=== PATIENT | female | born 1950 | race Caucasian/White ===

== ENCOUNTER 2023-06-07 05:09 | Inpatient (IN) | payer MEDICARE, OTHER, SELFPAY ==
[2023-05-19 11:46] VITALS: BMI 24.0
[2023-05-19 12:45] LABS: % Basophils 0.2 % (0-2); % Immature Granulocytes 0.4 % (0-0.5); % Lymphocytes 26.3 % (20.5-51.1); % Monocytes 11.5 % (1.7-9.3); % Neutrophils 61.6 % (42.2-75.2); Absolute Lymphocytes 1.3 10^3/uL (1.2-3.4); Absolute Monocytes 0.6 10^3/uL (0.1-0.6); Absolute Neutrophils 3.1 10^3/uL (1.4-6.5); Hematocrit 30.9 % (37.0-47.0); Mean Corp Hgb Conc. 32.4 g/dL (33.0-37.0); Mean Corpuscular Hgb 29.5 pg (27.0-31.0); Mean Corpuscular Volume 91.2 fL (81.0-99.0); Mean Platelet Volume 8.8 fL (7.4-10.4); Nucleated Red Blood Cells % 0 %; Platelet Count 302 10^3/uL (130-400); Red Blood Cell Count 3.39 10^6/uL (4.20-5.40); Red Cell Dist. Width 15.8 % (11.5-14.5); White Blood Cell Count 5.1 10^3/uL (4.8-10.8)
[2023-05-19 13:07] LABS: INR 1.05; PT 13.9 Sec (11.4-14.6)
[2023-05-19 13:08] LABS: APTT 29.8 Sec (23.4-35.0)
[2023-05-19 13:13] LABS: Urine Albumin Negative (Neg - Trace); Urine Bilirubin Negative (Negative); Urine Character Clear (Clear); Urine Color Yellow; Urine Glucose Negative (Negative); Urine Ketone Negative (Negative); Urine Leukocyte Negative (Negative); Urine Nitrite Negative (Negative); Urine Occult Blood Negative (Negative); Urine Urobilinogen Negative (Neg - 1+)
[2023-05-19 13:51] LABS: ALT (SGPT) 14 U/L (0-35); AST (SGOT) 21 U/L (14-36); Albumin 3.4 g/dl (3.5-5.0); Alkaline Phosphatase 81 U/L (38-126); Blood Urea Nitrogen 20 mg/dl (7-17); Carbon Dioxide 30 mmol/L (22-30); Chloride 99 mmol/L (98-107); Direct Bilirubin 0.4 mg/dl (0.0-0.4); Estimated Creatinine Clearance 73 ml/min; Glucose 90 mg/dl (70-99); Potassium 2.9 mmol/L (3.5-5.1); Sodium 138 mmol/L (135-145); Total Bilirubin 0.4 mg/dl (0.2-1.3); Total Protein 5.8 g/dl (6.3-8.2); eGFR > 60.00
[2023-05-19 13:58] LABS: NT-proBNP 476 pg/ml
--- NOTE | 2023-05-19 15:23 | CM ---
CM met w/ patient, spouse during PATs for planned CT Surgery 06/07.
Patient informs that she resides in a private, 2 story home w/ spouse + 2 adult sons. Patient has ability to have a 1st floor set up, if needed.
Patient is functionally indep. w ADLs, mobility without use of any assisted device. Pt. has a SPC at home, which she has used up until recently following a knee replacement. Patient has CPAP at home, which is supplied by [employer]. She uses this
somewhat regularly but does not when she is not feeling well.
Patient was recently on a 6 wk course of IV ABT. Her infusion therapy was thru [facility]. She had home nursing through [facility]. She is now not current w/ either.
Patient has Rx plan and uses [facility] in [place] ([address])
Reviewed pre and post op routines.
Soap, shower instructions, & Cardiac Surgery booklet provided.
Reviewed post op restrictions to include lifting, driving, flying and sternal precautions.
Reviewed post op appointments, Cardiac Rehab and visit from CT Transitional Care RN; patient agreeable to this.
Plan is for CT Surgery on 06/07.
Anticipated DC plan is for home with CT Transitional Care RN.
CM will cont. to follow.
[2023-05-20 09:48] LABS: Glycohemoglobin (HgbA1c) 5.4 % (4.0-5.6)
[2023-06-07] VITALS (9 sets, daily range): BP systolic 75–143; BP diastolic 50–92; BMI 25.5
[2023-06-07] MEDS: BACTROBAN 2% OINTMENT 1 APPLIC NASAL ×2 (05:37→20:12)
--- NOTE | 2023-06-07 06:02 | PTCARENOTE ---
Surgical clip and CHG wipe bath preformed, Admission completed, Blood work obtained. Blood pressure in both arms obtained. at bedside. Dr Kang in to see this am.
--- NOTE | 2023-06-07 06:05 | W.CVOR.SURPR ---
CVOR Surgeon Immed Pre Op
-
I have examined this patient prior to performance of the scheduled procedure.
The patient's condition is unchanged from the time of the dictated/written History and
Physical and the patient is able to undergo the scheduled procedure.
MV Repair vs Replacement + NGUYEN E ([id number] Score 4)
[2023-06-07 06:12] LABS: Blood Urea Nitrogen 27 mg/dl (7-17); Calcium 8.8 mg/dl (8.4-10.2); Carbon Dioxide 28 mmol/L (22-30); Chloride 101 mmol/L (98-107); Estimated Creatinine Clearance 63 ml/min; Glucose 108 mg/dl (70-99); Potassium 3.7 mmol/L (3.5-5.1); Sodium 139 mmol/L (135-145); eGFR > 60.00
[2023-06-07 07:08] LABS: ACT+ - POC 76 Seconds (82-134)
[2023-06-07 07:14] LABS: B.E. - POC 0.4 mmol/L; Glucose - POC 103 mg/dl (65-99); HCO3 - POC 26 mmol/L (21-29); Hematocrit - POC 29 % PCV (37-47); Hemodilution- POC No; Ionized Calcium - POC 1.12 mmol/L (1.12-1.27); O2 Saturation %Calculated-POC 99.9 5 (92-96); PCO2 - POC 44 mmHg (35-45); PO2 - POC 270 mmHg (80-100); Potassium - POC 3.4 mmol/L (3.6-5.0); Sodium - POC 143 mmol/L (135-145); pH - POC 7.38 (7.35-7.45)
[2023-06-07 07:35] LABS: Urine Albumin Negative (Neg - Trace); Urine Bilirubin Negative (Negative); Urine Character Clear (Clear); Urine Color Yellow; Urine Glucose Negative (Negative); Urine Ketone Negative (Negative); Urine Leukocyte Negative (Negative); Urine Nitrite Negative (Negative); Urine Occult Blood Negative (Negative); Urine Specific Gravity 1.005 (<1.030); Urine Urobilinogen Negative (Neg - 1+)
[2023-06-07 08:08] LABS: ACT+ - POC 623 Seconds (82-134)
--- NOTE | 2023-06-07 08:28 | CM ---
Reviewed chart. Mrs. Moreno is in the operating room today. Prior to admission she resides with her spouse and two adult sons in a two story home. Prior to admission she was independent with ambulation and adls. She has a single point cane
and CPAP Machine at home. Medical work-up in progress. The discharge plan is to return home with her spouse and sons and a home visit by the Cardiothoracic Transitional Care Nurse when medically stable.
[2023-06-07 08:37] LABS: B.E. - POC 2.4 mmol/L; Glucose - POC 167 mg/dl (65-99); HCO3 - POC 30 mmol/L (21-29); Hematocrit - POC 23 % PCV (37-47); Hemodilution- POC Yes; Hemoglobin Calculated - POC 7.7; Ionized Calcium - POC 1.04 mmol/L (1.12-1.27); O2 Saturation %Calculated-POC 99.9 5 (92-96); PCO2 - POC 71 mmHg (35-45); PO2 - POC 351 mmHg (80-100); Potassium - POC 4.1 mmol/L (3.6-5.0); Sodium - POC 140 mmol/L (135-145); pH - POC 7.24 (7.35-7.45)
[2023-06-07 08:39] LABS: ACT+ - POC 658 Seconds (82-134)
[2023-06-07 09:05] LABS: B.E. - POC 1.1 mmol/L; Glucose - POC 147 mg/dl (65-99); HCO3 - POC 26 mmol/L (21-29); Hematocrit - POC 24 % PCV (37-47); Hemodilution- POC Yes; Hemoglobin Calculated - POC 8.2; Ionized Calcium - POC 1.01 mmol/L (1.12-1.27); O2 Saturation %Calculated-POC 99.9 5 (92-96); PCO2 - POC 40 mmHg (35-45); PO2 - POC 250 mmHg (80-100); Potassium - POC 4.2 mmol/L (3.6-5.0); Sodium - POC 140 mmol/L (135-145); pH - POC 7.42 (7.35-7.45)
[2023-06-07 09:07] LABS: ACT+ - POC 599 Seconds (82-134)
[2023-06-07 09:41] LABS: ACT+ - POC 87 Seconds (82-134)
[2023-06-07 09:42] LABS: B.E. - POC -0.3 mmol/L; Glucose - POC 73 mg/dl (65-99); HCO3 - POC 25 mmol/L (21-29); Hematocrit - POC 25 % PCV (37-47); Hemodilution- POC Yes; Hemoglobin Calculated - POC 8.5; Ionized Calcium - POC 1.22 mmol/L (1.12-1.27); PCO2 - POC 46 mmHg (35-45); PO2 - POC 380 mmHg (80-100); Sodium - POC 143 mmol/L (135-145); pH - POC 7.35 (7.35-7.45)
--- NOTE | 2023-06-07 10:17 | W.PN.CT.SURG ---
CT Surgery Operative Note
-
CARDIAC SURGERY OPERATIVE REPORT
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
Postoperative Diagnosis: Same
Procedure(s) Performed:
1. Sternotomy with aortic and bicaval cannulation
2. Radical mitral valve repair (debridement of mitral valve leaflets, triangular resection of P2 scallop, 28 mm band annuloplasty)
3. Closure of ASD/PFO
4. Left atrial appendage exclusion (35 mm)
5. Placement of temporary atrial ventricular pacing wire
6. Transesophageal echocardiography
Date of Surgery: 06/07/2023
Comorbidities:
1. Mitral valve endocarditis
2. Degenerative mitral valve disease, type II with flail of P2
3. Malnourishment, failure to thrive
4. Osteomyelitis/discitis of the spine
5. Sacroiliitis
6. Multiple urinary tract infections
7. Hypothyroidism, status post thyroidectomy
8. Electrolyte disturbance, hypokalemia, hyponatremia, hypocalcemia
9. NSTEMI
10. ELVIRA/CPAP
11. Elevated [id number] score of 4
12. Asthma
Attending Surgeon: Paras Kang MD, MS
Assistants: Jona Neal PA-C (present and necessary to pharmacy sales assistant, retraction, suction, exposure, suture management, and wound closure under my direction)
Anesthesiology: Vijay Parr MD and Nikolai Rajan CRNA
Scrub and Circulating RNs: Barby Carpenter, RN, Hermann Mayers RN
Roving Department Supervisor: Karen Hayward CCP & Ann Marie Hinson CCP
Anesthesia: GETA
EBL: per perfusion records
Products: None
CPB Time: 66 minutes
Aortic Cross Clamp Time: 46 minutes
Indication(s) for Procedures: This is a 73-year-old female admitted to the hospital for prolonged period time with endocarditis as well as discitis. She was discharged home to convalesce and rebuild some reserve. She was seen in the office
multiple times and was making steady improvement but was still experiencing shortness of breath. She underwent a repeat transthoracic echocardiogram which demonstrated severe mitral valve insufficiency with a eccentric anterior directed jet that
wraps around the left atrium. Given her ongoing symptoms she met stage D symptomatology and class I indication for mitral valve intervention. Due to the history of infection, there was a higher likelihood of replacement.
Mitral Valve Description: Short anterior leaflet, flail segment of P2 scallop with multiple torn cords, vegetation of the P2 scallop with thickening of some of the cords, overall small size annulus and mild to moderately dilated left atrium.
Findings: Left ventricular ejection fraction preoperatively was 60% with no regional wall motion abnormalities following surgery her EF was hyperdynamic with an EF of approximately 70% and a cardiac index of over 3.5 there were no new regional wall
motion abnormalities. The mitral valve was debrided of any vegetations, there was a clear flail segment multiple torn cords at P2 was resected in a triangular fashion with multiple secondary cords taken. Many raw surfaces on the coaptation margin
were debrided with a rongeur, the remaining P2 scallop was then reapproximated with several 5-0 interrupted [id number] Prolene sutures. A total of 13 2-0 nonpledgeted Ethibond sutures were placed from trigone to trigone, the valve was measured
from trigone to trigone as well as anterior leaflet sized to a [address] with core knots. Dynamic inflation of the left ventricle demonstrated good coaptation and pressurization. Ink marking the coaptation margin demonstrated a
posterior coaptation line with less than a centimeter of coaptation height. Upon removal of the cross-clamp, she was initially hyperdynamic but the valve was competent without any residual MR and no systolic anterior motion of the leaflets.
However when her heart rate reached 130 and her index was greater than 3.5 there was evidence of dynamic KAIA with mild mitral insufficiency. With some beta-blockade, amiodarone and volume loading this completely disappeared. At the conclusion of
the case off cardiopulmonary bypass she had no residual mitral valve insufficiency, a mean gradient of 4 across the valve while hyperdynamic, and no systolic anterior motion of the leaflets or LVOT gradient. Left atrial appendage was verified to be
free of any thrombus or debris preoperatively, due to her elevated [id number] score, 35 mm clip was placed and found to be totally occlusive. There was a residual stump of approximately 9 mm but no flow in the left atrial appendage. A PFO
identified some air was then draining into the venous lines this was closed with a running over and over stitch using 5-0 Prolene. There is no residual shunt identified between the atria.
Specimen(s): Posterior leaflet vegetation and flail segment, triangular resection of posterior leaflet at P2 scallop
Prosthesis:
1. 28mm LITTLE PhysioFlex Band, SN [id number].
2. Multiple 5-0 prolene sutures to approximate post resection.
Description of Procedure: The patient was taken to the operating room. Their identity and procedure to be performed were verified and they were positioned supine on the operating table. Induction via general anesthesia with endotracheal intubation
was performed and central venous access and arterial monitoring were inserted. A preoperative transesophageal echocardiogram was performed to assess cardiac function and valvular function. The patient was then prepped and draped from chin to feet in
a sterile fashion. A preoperative time-out was performed with all members of the team present. A midline chest incision was performed along with median sternotomy. The innominate vein was isolated. Full heparinization was given (a total of 38,000
units). We created a pericardial well. The aortic cannulation site was chosen where it was soft, pliable, and free of calcium. Cannulation was performed with an arterial cannula in the ascending aorta, angled metal tip cannular in the superior vena
cava and straight bendable cannula in the inferior vena cava. The arterial cannula line had an appropriate bounce and correlating pressures. Next, a root vent/antegrade cannula was inserted into the ascending aorta. The ACT was confirmed to be over
400 and retrograde autologous priming was performed before commencing cardiopulmonary bypass. The pulmonary artery was away from the aorta to facilitate a clamp site. Sondergaard�s groove was developed after creating the oblique sinus.
The left atrial appendage was verified to be free of any thrombus or debris, the heart was then elevated rightward and left atrial appendage clip was placed flush the base. The aortic cross-clamp was placed after decreasing the flow on the bypass
and mean arterial pressure. A total of 1.2L initial dose of antegrade Del-Nido cardioplegia solution was given and planned for re-dosing every 75 minutes as necessary. There was rapid electro-mechanical arrest of the heart at 400 cc of cardioplegia.
The left ventricle was observed for distention on echocardiogram and manual palpation. Cold slush was placed into a lap on the RV and we systemically cooled to 34 degrees centigrade.
Carbon dioxide was used to flood the field. The mitral valve was access via the the intra-atrial groove followed by valve analysis. The mitral valve was repaired as described above. Antibiotic infused solution was used to irrigate the left atrial
and left ventricular cavities. No obvious vegetations or destruction of the subvalvular apparatus was identified. Of note, there was some atrial activity and so an additional 300 dose of antegrade cardioplegia was given with rapid quiescence at
100 cc. A PFO was noticed as there was some air entry into the venous line. This was closed with an over and over stitch using 5-0 Prolene in a running fashion. The left ventricular vent was repositioned across the mitral valve into the left
ventricular and the left atrium was closed with a 3-0 prolene.
De-airing maneuvers were performed and temporary bipolar ventricular pacing wires were placed on the base of the right ventricle along with atrial pacing wires at the SVC right atrial junction. The patient was placed in a Trendelenburg position and
flows on bypass were lowered. The aortic cross clamp was removed and flows were slowly brought back up. The left atrial suture line was hemostatic. Transesophageal echocardiography revealed no evidence of systolic anterior motion after appropriate
volume loading, heart rate management, and a less hyperdynamic ventricle. Once de-airing was satisfactory the left ventricular and root vents were removed. After verifying acceptable parameters, we initiated weaning from cardiopulmonary bypass. Once
we were off cardiopulmonary bypass, the venous cannulas was clamped and removed sequentially. A test dose of protamine was administered and the patient was monitored for any adverse reaction before resuming protamine. Once half of the protamine dose
was delivered, pump suckers were turned off and the systolic blood pressure was lowered for aortic decannulation. The aortic cannula was removed and purse strings were tied down. All cannulation sites were oversewn with a 4-0 prolene. The left
atrial suture line was inspected and hemostasis was confirmed. Mediastinal hemostasis was obtained. Two #24 Arsalan drains were placed within the pericardium. The sternum was approximated with 4 #6 single and 3 #6 double stainless steel wires. Fascia
was approximated with #1 vicryl suture. The subcutaneous, dermis and epidermis were closed in layers in a running fashion. The skin wound was cleansed and dressed.
All instrument, sponge, and needle counts were confirmed to be correct x 2 at the end of the operation. The patient was transferred to the cardiac intensive care unit in critical but stable condition.
I, Dr. Paras Kang, was present, scrubbed for, and performed all critical elements of this procedure.
Paras Kang MD, MS
Cardiothoracic Surgeon
[facility]
This dictation was created using the [email or web address] dictation system. Please excuse any grammatical, typographical, or 'sound alike' errors
--- NOTE | 2023-06-07 10:25 | CON.INTV ---
Consultation
Consultation Request
Date/Time Consultation Requested: 06/07/2023953
Date/Time Consultation Performed: 06/07/2023 - 1017
Requesting Provider: Jona Neal PA-C
Performing Provider: Dr. Neville
Reason for Consultation: S/p radical MV repair
Medical History
-
Chief Complaint: Elective mitral valve repair
History of Present Illness:
73-year-old F with PMHx of MV endocarditis who presents with elective mitral valve repair. She is known to the cardiothoracic surgery service and had seen Dr. Kang on 05/23/2023. She has known moderate-severely eccentric MR and has been
experiencing SOB with activity. She meets Stage D symptomatology for MV repair as a class 1 indication. Today pt underwent sternotomy with radical MV repair with closure of ASD/PFO and NGUYEN-exclusion. There were no immediate complications and pt
was TRX to CVICU post-operatively for further care, with critical care services consulted for additional recommendations.
When I saw the pt she was in bed, in NAD, with at bedside. Pt has R-IJ cordis in place with PAC present, PAP: 33/14, CVP: 11. Right radial A-line present with BP 103/54, HR 72. SpO2 99% on 2L/min NC. She is on amiodarone gtt at
0.5mg/min, levophed at 4mcg/min and insulin gtt at 2 untis/hr. Pt says she feels 'uncomfortable,' and is thirsty. She denies SOB, SHAVER, abd pain, N/V/f/c. She has chest discomfort but it is not painful.
PMHx: mitral valve endocarditis, L5-OM, sacroiliitis, Hx of UTI, lactobacillus bacteremia, lower back pain, depression, asthma, hypothyroidism, Hx of thyroid cancer s/p thyroidectomy, Hx of NSTEMI, Hx of ELVIRA non-compliant to CPAP
PSHx: Left-TKA, thyroidectomy (2010), T&A, wisdom teeth removal (1968), D&C (1981), x3, abdominoplasty, septoplasty annabelle b/l turbinate reduction (2006), carpral tunnel release (R), appendectomy
Past Medical History
Past Medical History: Other (Above as per HPI)
Past Surgical History: Other (Above as per HPI)
Social History
Tobacco: Non-smoker
Alcohol: None
Drug: None
Personal:
Living: With Family
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
Family History
Family History: CAD (Mother) and Cancer (F: colon cancer; M: Breast cancer)
Allergies / Home Medications
Allergies
Allergy/AdvReac Type Severity Reaction Status Date / Time
codeine Allergy Nausea Verified 06/07/23 18:43
tomato Allergy stomach Verified 06/07/23 06:07
upset
Home Medications
Medication Instructions Recorded Confirmed Last Taken Type
albuterol sulfate 90 mcg/actuation 2 puff inhalation R Q6HPRN PRN sob 03/26/23 06/07/23 Unknown History
aerosol inhaler (ProAir HFA)
budesonide-formoterol HFA 160 2 inh inhalation R BID 03/26/23 06/07/23 03/25/23 History
mcg-4.5 mcg/actuation aerosol
inhaler (Symbicort)
docusate sodium 100 mg capsule 100 mg PO BID 03/26/23 06/07/23 03/25/23 History
(Colace)
escitalopram oxalate 5 mg tablet 5 mg PO DAILY 03/26/23 06/07/23 03/25/23 History
fluticasone furoate 100 1 inh inhalation R DAILY 03/26/23 06/07/23 06/07/23 05:00 History
mcg/actuation blister powder for
inhalation (Arnuity Ellipta)
gabapentin 100 mg capsule 200 mg PO BID 03/26/23 06/07/23 03/25/23 History
levothyroxine 88 mcg tablet 88 mcg PO DAILY@1600 03/26/23 06/07/23 06/07/23 00:00 History
(Synthroid)
liothyronine 5 mcg tablet (Cytomel) 10 mcg PO DAILY@1600 03/26/23 06/07/23 06/07/23 00:00 History
ondansetron 4 mg disintegrating 4 mg PO Q6HPRN PRN take with 03/26/23 06/07/23 03/26/23 History
tablet tramadol
calcium carbonate 500 mg calcium 500 mg PO BID #60 tabs 04/04/23 06/07/23 Unknown Rx
(1,250 mg) tablet (Oyster Shell
Calcium 500)
cholecalciferol (vitamin D3) 50 2,000 unit PO DAILY #30 tabs 04/04/23 06/07/23 Unknown Rx
mcg (2,000 unit) tablet
mirtazapine 7.5 mg tablet 7.5 mg PO HS #30 tabs 04/04/23 06/07/23 06/06/23 00:00 Rx
Review of Systems
-
History Source: Patient
All other systems: Negative unless noted
Vitals / Labs / Diagnostic Testing
Vital Signs
Temp Pulse Resp BP Pulse Ox
97.6 F 72 13 93/59 98
06/07/23 18:57 06/07/23 18:57 06/07/23 18:57 06/07/23 16:54 06/07/23 18:57
Lab Data
06/07/23 15:00
06/07/23 10:25
Laboratory Results
06/07/23 06/07/23
10:25 15:00
PT 15.9 H
INR 1.29
APTT 29.2
pH 7.40 7.38
pCO2 45 H 41 H
pO2 178 H 188 H
HCO3 27.9 24.3
O2 Delivery Level
Microbiology
06/07/23 08:30 Valve Gram Stain - Preliminary
Diagnostic Testing:
Physical Exam
-
HEENT: Normocephalic and Anicteric
Cardiovascular: S1/S2 and Peripheral Edema (negative)
Respiratory: Clear, Wheeze (negative), Rales (negative), Rhonchi (negative) and Non-Labored Respirations
GI: Soft, Non Distended, Non Tender and Normal Bowel Sounds
Neurology: AO x 3 and No Motor Deficits
Skin: Warm and Dry
General: Comfortable and Chills (negative)
Assessment
-
Assessment: 73-year-old F with PMHx of MV endocarditis who presents with elective mitral valve repair. She is known to cardiothoracic surgery service and had seen Dr. Kang on 05/23/2023. She has known moderate-severely eccentric MR and has been
experiencing SOB with activity. She meets Stage D symptomatology for MV repair as a class 1 indication. Today pt underwent sternotomy with radical MV repair with closure of ASD/PFO and NGUYEN-exclusion. There were no immediate complications and pt
was TRX to CVICU post-operatively for further care, with critical care services consulted for additional recommendations.
Chronic medical conditions PROCUREMENT MANAGER:: mitral valve endocarditis, L5-OM, sacroiliitis, Hx of UTI, lactobacillus bacteremia, lower back pain, depression, asthma, hypothyroidism, Hx of thyroid cancer s/p thyroidectomy, Hx of NSTEMI, Hx of ELVIRA non-compliant
to CPAP
Impression:
#MV endocarditis with severe insufficiency s/p radical mitral valve repair (POD #0)
#Chronic anemia
#Hyperglycemia
#Hx of NSTEMI
#Depression
#Asthma not currently in an acute exacerbation
Plan:
Pt already extubated to nasal cannula
Titrate O2 flow rate to maintain SpO2 >90-94%
Encourage IS
Pulmonary artery catheter parameters will be followed
Pressors/antihypertensive/inotropes/diuretics will be provided as needed
Maintain MAP>65, goal CVP<14
Monitor chest tube output (she has mediastinal chest tubes x2)
Monitor hemoglobin
Monitor platelet count and coags
Transfuse blood product if needed
CT surgery managing chest tubes
Monitor blood sugar with goal BG 140-180
Insulin drip per protocol
Aspiration precautions
DVT prophylaxis
Early nutrition
Early mobilization
Critical care statement (Patient seen and evaluated on 06/07/2023): A total of 41 minutes of critical care time was provided for this patient today. This includes management of ventilator, spontaneous breathing trial, arterial blood gases, pressors,
of unstable vital signs, evaluation of the patient at bedside, reviewing the patient's pertinent medical records including radiographs, microbiology, laboratory evaluations, and discussion with primary team and critical care nursing.
Data:
CXR 06-07-2023:
1. Tubes and lines are in satisfactory position.
2. Mild pulmonary vascular congestion.
3. Haziness of left hemidiaphragm, which may represent left lower lobe subsegmental atelectasis and/or small left pleural effusion.
--- NOTE | 2023-06-07 10:30 | W.PN.CD ---
Addendum entered and electronically signed by Claudia Saucedo MD 06/07/23 15:22:
I saw and examined the patient.
The CRIMP SETTER's note was reviewed and I agree with the note.
Comment: She is currently intubated and sedated at time of evaluation. She is on low dose levophed, amiod and bb. Post op she demonstarated concern for KAIA and LVOT gradient, but now improved with meds and volume. Will continue to follow.
Original Note:
Today's Communication / Plan
-
Follow telemetry
Impression / Plan
-
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
Primary Landscape Photographer: Dr. Abraham ([facility])
Impression/Plan:
Mitral regurgitation S/P mitral valve repair by Dr. Kang 06/07/23
-Vegetation to PL and flail S/P P2 resection with band and NGUYEN clip
-Pre-op LVEF 60%, post no RWMA and EF 70% (CI 3.5)
-Hyperdynamic, no residual MR & MG 4mmHg
-QTc prolonged on EKG, EKG in am
KAIA
-Post cross clamp, HR 130, CI > 3.5 there was evidence of dynamic KAIA with mild mitral insufficiency
-Disappeared with beta-blockade, amiodarone and volume loading
S/P Thyroidectomy, hypothyroidism, on levothyroxine
Asthma, chronic
Subjective:
Unable. Intubated and sedated on mechanical ventilation.
Physical Exam
Vital Signs/Labs
Vital Signs
Temp Pulse Resp BP Pulse Ox
97 F 83 14 143/92 97
06/07/23 05:25 06/07/23 05:25 06/07/23 05:25 06/07/23 05:25 06/07/23 05:25
06/06/23 06/07/23 06/08/23
06:59 06:59 06:59
Actual Weight 67.4 kg
PT 13.9 Sec (11.4-14.6) 05/19/23 12:18
INR 1.05 05/19/23 12:18
APTT 29.8 Sec (23.4-35.0) 05/19/23 12:18
05/19/23
12:18
[id number] Pept 476
Physical Exam
Constitutional: No acute distress and Comfortable
EENT: Anicteric and Moist mucous membranes
Cardiovascular: Rhythm & rate is regular and S1S2 is normal
Respiratory: Lungs clear to auscul. and Other (Mechanical ventilation)
GI: Soft, Distention absent, Flat, Non tender and Normal bowel sounds
Neuro/Psych: Other (Sedated)
Other: Skin (warm and dry)
Data Reviewed
-
Date of Service: June 07, 2023
EKG: Report Reviewed by me
Labs: Labs Reviewed by me
Old Records: Reviewed
--- NOTE | 2023-06-07 10:37 | W.PN.UPDATE ---
Update Note
Progress Note Update
IV fluids: 1000
U.O.:� 350
UF:� 2500
Blood:� None
Wires:� AV Wires
Inotropes:� None
Pressors:� Levophed
Sedatives:� Precedex
�
NEURO: sedated on Precedex, pupils +2mm B/L
RESP: #8OT @25cm> 15/500/60/5 Lungs clear B/L. 2 mediastinal (10cc on arrival) Sanguineous drainage
CV: RRR +S1, S2, no S3, no�rub, no murmur. Dermabond to median sternotomy. RIJ w/[place] locked @ 45cm. PA ; CVP 9; C.O 4.1/CI 3.0
ABD: round, soft, no BS
EXT: no edema, +1/4 DP pulses B/L, no femoral bruit, Left radial A-line intact
: Chambers with clear yellow urine
�
A/P: POD #0 s/p mitral valve repair with montelongo #28mm ring
ALEX: EF�70-75%
- wean precedex and ventilator support and extubate
- will need instruction regarding antibiotic prophylaxis for dental and invasive procedures
- Will start ASA 81mg when tolerating PO
- Wean levophed for goal MAPs >65
- Follow up CXR and ABG
- trend labs
- Pain control; cont gabapentin and PRN Oxy
- Stage Director consulted
#Systolic Anterior Motion s/p MVRepair
- Post-op ALEX showed a hyperdynamic LV
- started on amiodarone gtt d/t tachycardia immediately post-op and concern for S.A.M.
- Will start low dose BB tonight as BP allows
- hold on diureses; Goal CVP 10-12
- Repeat TTE upon to DC
- Cardiology consulted
�
# acute surgical blood loss anemia-expected
- trend CBC
- transfusion goal: Hgb >8
�
# Hyperglycemia
- insulin infusion x 24h
�
# Hypothyroidism
- resume�Synthroid 88mcg
[2023-06-07 10:42] LABS: Glucose - Point of Care 117 mg/dl (70-99)
[2023-06-07 10:43] LABS: B.E. 2.7 mmol/L; HCO3 27.9 mmol/L (21-28); Ionized Calcium 1.18 mMOL/L (1.15-1.33); PCO2 45 mmHg (32-35); PO2 178 mmHg (83-108); Potassium 4.4 mMOL/L (3.5-5.1); Sodium 139 mMOL/L (136-145)
[2023-06-07 10:48] LABS: Hematocrit 26.1 % (37.0-47.0); Hemoglobin 8.4 g/dL (12.0-16.0); Platelet Count 174 10^3/uL (130-400)
[2023-06-07 10:53] LABS: INR 1.29; PT 15.9 Sec (11.4-14.6)
[2023-06-07 10:54] LABS: APTT 29.2 Sec (23.4-35.0)
[2023-06-07] MEDS: ALBUMIN 5% 250 IV ×3 (10:54→16:52)
[2023-06-07] MEDS: LEXAPRO PO (10:54)
[2023-06-07] MEDS: ZINACEF 1500 MG IV ×2 (10:54)
[2023-06-07] MEDS: NSS 500 IV (10:55)
[2023-06-07 11:00] LABS: Glucose - Point of Care 134 mg/dl (70-99)
[2023-06-07 11:05] LABS: Blood Urea Nitrogen 21 mg/dl (7-17); Estimated Creatinine Clearance 73 ml/min; Glucose 112 mg/dl (70-99); Magnesium 3.3 mg/dl (1.6-2.3)
[2023-06-07] MEDS: NSS (PRESERVATIVE FREE) 8 ML IV ×2 (11:06→19:42)
[2023-06-07] MEDS: PEPCID 20 MG IV ×2 (11:06→19:42)
--- NOTE | 2023-06-07 11:29 | PTCARENOTE ---
Patient received from CVOR s/p MV repair. NSR via cm, SaO2 99% on ventilator, titrating FiO2 as able. RIJ Cordis/[place]-Jason catheter, R radial arterial lines present - leveled, flushed, and calibrated w/good waveforms returned. Epicardial A+V wires
to pulse generator set to backup VVI 30, mA 10. Mediastinal chest tubes x 2, Y-connected to one pleuravac, placed to -20cm suction w/no air leak noted. Chambers catheter to gravity. All procedural sites stable. Dr. Kang to bedside, updated to status.
See work list for full assessment, interventions performed, and intravenous infusions and titrations.
[2023-06-07] MEDS: CALCIUM CHLORIDE 10% SYRINGE 50 MG IV (11:40)
[2023-06-07] MEDS: CALCIUM CHLORIDE 10% SYRINGE 50 ML IV (11:40)
[2023-06-07 11:59] LABS: Glucose - Point of Care 178 mg/dl (70-99)
[2023-06-07] MEDS: OFIRMEV 100 IV (12:43)
[2023-06-07 12:58] LABS: Glucose - Point of Care 202 mg/dl (70-99)
[2023-06-07 14:00] LABS: Glucose - Point of Care 169 mg/dl (70-99)
[2023-06-07 14:59] LABS: Glucose - Point of Care 132 mg/dl (70-99)
[2023-06-07 15:08] LABS: B.E. -0.8 mmol/L; HCO3 24.3 mmol/L (21-28); Ionized Calcium 1.27 mMOL/L (1.15-1.33); PCO2 41 mmHg (32-35); PO2 188 mmHg (83-108); Potassium 4.1 mMOL/L (3.5-5.1); pH 7.38 (7.35-7.45)
[2023-06-07 15:14] LABS: Hematocrit 28.3 % (37.0-47.0); Hemoglobin 9.3 g/dL (12.0-16.0); Platelet Count 219 10^3/uL (130-400)
[2023-06-07] MEDS: STERILE WATER FOR INJECTION 8.30000000000000071 ML IV (15:45)
[2023-06-07] MEDS: ZINACEF 750 MG IV (15:45)
[2023-06-07 16:05] LABS: Glucose - Point of Care 120 mg/dl (70-99)
[2023-06-07 17:04] LABS: Glucose - Point of Care 118 mg/dl (70-99)
[2023-06-07] MEDS: ZOFRAN 4 MG IV (17:06)
[2023-06-07] MEDS: LIDOCAINE 4% PATCH 1 PATCH TOPICAL (18:06)
[2023-06-07] MEDS: TORADOL 15 MG IV (18:06)
[2023-06-07 18:57] LABS: Glucose - Point of Care 108 mg/dl (70-99)
--- NOTE | 2023-06-07 19:00 | PTCARENOTE ---
report received from previous RN, walking rounds done. pt in bed, drowsy but oriented x4. pt denies any pain at this time. NSR on monitor, HR 70's. Amio gtt infusing @ 0.5mg. epicardial AV wires intact set to back up VVI 30, mA 10. no pacing spikes
noted. B/L radial and DP pulses palpable. RIJ cordis and swan intact w KVOs infusing. right radial art line intact. Levo gtt infusing @ 4mcg. SBP 110's. last CI 2.98. B/L breath sounds present. POX 98% on 2LNC. IS encouraged. CT x2 intact to -20cm
wall suction, drainage WNL, no air leak present. hypoactive bowel sounds present. insulin gtt infusing per glycemic protocol. shen catheter intact, draining clear yellow urine. UO adequate. all surgical sites stable. see worklist for full
assessment, VS, and interventions. pt resting comfortably w family @ bedside.
[2023-06-07] MEDS: LOW STRENGTH ASPIRIN 81 MG PO (19:42)
[2023-06-07] MEDS: SENOKOT-S PO (19:43)
[2023-06-07] MEDS: CALCIUM CHLORIDE 10% SYRINGE 60 MG IV (20:06)
[2023-06-07] MEDS: SODIUM BICARBONATE 50 MEQ IV (20:10)
[2023-06-07] MEDS: TYLENOL 1000 MG PO (20:11)
[2023-06-07] MEDS: SYNTHROID 88 MCG PO (20:11)
[2023-06-07] MEDS: SYMBICORT 160/4.5 MCG INHALER 2 PUFF INH (20:11)
[2023-06-07 21:08] LABS: Glucose - Point of Care 107 mg/dl (70-99)
[2023-06-07] MEDS: REMERON 7.5 MG PO (22:04)
[2023-06-07] MEDS: NEURONTIN 200 MG PO (22:04)
[2023-06-07 22:57] LABS: Glucose - Point of Care 94 mg/dl (70-99)
--- NOTE | 2023-06-07 23:00 | PTCARENOTE ---
no changes in assessment. NSR. 2LNC. Levo gtt infusing @ 2mcg. Amio gtt maintained @ 0.5mg. insulin gtt maintained per protocol. CT output and UO WNL. all surgical sites stable. pt sleeping between care.
[2023-06-07] MEDS: DILAUDID 0.25 MG IV (23:03)
[2023-06-08] VITALS (31 sets, daily range): BP systolic 85–134; BP diastolic 51–75; BMI 27.5
[2023-06-08] MEDS: ZINACEF 750 MG IV ×2 (00:20→09:11)
[2023-06-08] MEDS: STERILE WATER FOR INJECTION 8.30000000000000071 ML IV ×2 (00:20→09:11)
[2023-06-08 01:16] LABS: Glucose - Point of Care 109 mg/dl (70-99)
[2023-06-08] MEDS: ZOFRAN 4 MG IV (01:19)
--- NOTE | 2023-06-08 03:00 | PTCARENOTE ---
no acute changes in assessment. NSR 70's. unable to wean Levo gtt off d/t hypotension. POX 98% on 2LNC. CT output and UO WNL. Amio gtt and Insulin gtt maintained. AM labs drawn and sent. EKG completed. pt having nausea unrelieved by genesis, awaiting
new orders. all surgical sites stable. pt resting between care.
[2023-06-08 03:05] LABS: Glucose - Point of Care 78 mg/dl (70-99)
[2023-06-08 03:11] LABS: Ionized Calcium 1.26 mMOL/L (1.15-1.33)
[2023-06-08 03:13] LABS: Hematocrit 25.7 % (37.0-47.0); Hemoglobin 8.5 g/dL (12.0-16.0); Mean Corp Hgb Conc. 33.1 g/dL (33.0-37.0); Mean Corpuscular Hgb 29.1 pg (27.0-31.0); Mean Platelet Volume 8.4 fL (7.4-10.4); Platelet Count 194 10^3/uL (130-400); Red Blood Cell Count 2.92 10^6/uL (4.20-5.40); Red Cell Dist. Width 16.3 % (11.5-14.5)
[2023-06-08 03:26] LABS: Blood Urea Nitrogen 26 mg/dl (7-17); Calcium 8.9 mg/dl (8.4-10.2); Carbon Dioxide 25 mmol/L (22-30); Chloride 108 mmol/L (98-107); Estimated Creatinine Clearance 63 ml/min; Glucose 93 mg/dl (70-99); Magnesium 2.4 mg/dl (1.6-2.3); Sodium 137 mmol/L (135-145); eGFR > 60.00
[2023-06-08] MEDS: TORADOL 15 MG IV (03:28)
--- NOTE | 2023-06-08 03:55 | W.PN.CT ---
Today's Communication / Plan
-
Plan:
-No major issues overnight. Hemodynamically and neurologically intact
-BP soft overnight, AM h/h 8.5/25.7, gave 1u PRBC
-Levophed gtt @ 2 this AM, remains on Amiodarone, and insulin gtt per protocol
-Last CI 2.75, U/O 1090 mL since OR
-Monitor chest tube output: 2meds 250/445
-CXR yesterday with Left basilar opacification, likely small effusion/atelectasis, f/u cxr this AM, pending
-Will benefit from gentle diuresis if BP permits, consider hold on AM BB
-Cont. current meds (ASA, Amiodarone, Synthroid, Lexapro; held BB last night while Levophed)
-D/C swan and a-line once off pressors
-D/C insulin gtt/transfer to telemetry phase
-D/C shen catheter
-Maintain cordis
-Maintain temporary pacer wires (will cut before d/c home)
-Encourage use of IS
-Wean off of O2
-OOB into chair
-Ambulate
-Will obtain repeat echo per Dr. Kang
Assessment / Plan
-
Assessment:
Sternotomy with aortic and bicaval cannulation/Radical mitral valve repair (debridement of mitral valve leaflets, triangular resection of P2 scallop, 28 mm band annuloplasty)/Closure of ASD/PFO/Left atrial appendage exclusion (35 mm) by Dr. Kang,
06/07/23, pod#1
-Mitral valve endocarditis (Lactobacillus)
-Severe MR/Degenerative mitral valve disease, type II with flail of P2
-PFO/ASD
-Intraop Tachycardia, KAIA (resolved with BB/IV fluids)
-LVEF 55-60%
-Elevated [id number] score of 4
-NSTEMI
-Anemia
-Hx of electrolyte imbalance (hypokalemia, hypocalcemia, hyponatremia, hypomagnesemia)
-Malnourishment, failure to thrive
-Multiple urinary tract infections
-Depression
-ELVIRA (uses CPAP)
-Asthma
-Osteomyelitis/discitis of the spine
-Sacroiliitis
-Hx Thyroid ca S/P thyroidectomy, XRT, 2010
-Hypothyroidism
-S/p L TKA, 09/2022
-S/p Appendectomy
-S/p
-S/P Abdominoplasty, 1989
-Acute postop blood loss/anemia on chronic anemia (transfused 1u PRBC's)
-Acute postop atelectasis/pleural effusion
-Acute postop hypovolemia with subsequent hypervolemia
-Acute postop prolonged QT (QTc 493)
-Acute postop ectopies/bigeminy, started on amiodarone gtt
Discussed patient care with: Cardiology, Nursing, Respiratory Therapy, Pharmacy and Care Team
Subjective
Procedure
Sternotomy with aortic and bicaval cannulation/Radical mitral valve repair (debridement of mitral valve leaflets, triangular resection of P2 scallop, 28 mm band annuloplasty)/Closure of ASD/PFO/Left atrial appendage exclusion (35 mm) by Dr. Kang,
06/07/23
-
Date of Service: June 08, 2023
Pt c/o incisional pain, otherwise feels well
Objective Data
-
Lab Results
06/08/23 03:04
06/08/23 03:04
PT 15.9 Sec (11.4-14.6) H 06/07/23 10:25
INR 1.29 06/07/23 10:25
APTT 29.2 Sec (23.4-35.0) 06/07/23 10:25
Vital Signs
Vital Signs
Temp Pulse Resp BP Pulse Ox
98.1 F 72 12 75/50 98
06/08/23 03:00 06/08/23 03:00 06/08/23 03:00 06/07/23 23:09 06/08/23 03:00
CT Intake/Output/Weight
06/07/23 06/07/23 06/08/23
06:59 18:59 06:59
Intake Total 1498.8 / 1933.1 434.3 / 1933.1
Output Total 960 / 1395 435 / 1395
Balance 538.8 / 538.1 -0.7 / 538.1
SaO2: 98 (2L)
Physical Exam
-
General: Awake, Oriented and AOx3
Cardiovascular: Regular rate & rhythm, No Murmurs and Rub (likely friction rub from chest tubes)
Respiratory: Decreased Breath Sounds (at bases, otherwise clear)
Sternum: Stable
Incision: Clean, Dry, Intact and Dressing Intact
Extremities: No Edema (trace edema)
Data Reviewed
-
Lab Results: Results Reviewed
Medications: Active Meds Reviewed
Chest X-Ray: Report Reviewed and Image Reviewed
ECG: Report Reviewed and Image Reviewed
[2023-06-08 04:14] LABS: Glucose - Point of Care 107 mg/dl (70-99)
[2023-06-08] MEDS: TYLENOL PO (04:18)
[2023-06-08] MEDS: REGLAN 10 MG IV ×2 (04:23→10:53)
--- NOTE | 2023-06-08 05:00 | PTCARENOTE ---
labs reviewed with KRISTEN BLANCHARD. orders received for 1 unit PRBCs.
[2023-06-08] MEDS: CALCIUM CHLORIDE 10% SYRINGE 60 MG IV (05:03)
[2023-06-08 05:11] LABS: Glucose - Point of Care 108 mg/dl (70-99)
[2023-06-08 06:08] LABS: Glucose - Point of Care 108 mg/dl (70-99)
[2023-06-08 07:10] LABS: Glucose - Point of Care 106 mg/dl (70-99)
[2023-06-08] MEDS: CORDARONE 518 MG IV (07:37)
--- NOTE | 2023-06-08 07:41 | W.PN.ANS.POP ---
Anesthesia Post Operative
- Anesthesia Post Op Note
Vital Signs Stable-See Nursing Note: Yes
Airway Patent: Yes
Adequate Pain Control: Yes
Change in Mental Status: No
Current Postoperative Nausea & Vomiting: No
Anesthesia Complications: No
General Anesthetic Recall: No
Unplanned Admission: No
Post Op Hydration Adequate: Yes
--- NOTE | 2023-06-08 08:00 | PTCARENOTE ---
pt received from previous RN, oriented, in bed. SR on the monitor, HR 60s. A&V wires in place. VVI 30/10. Amiodarone gtt running as ordered. CVP ~8, PAP 30s/10, CI >2. SBP 90s, PA aware of difference between noninvasive cuff and [place] pressures.
Levophed gtt running as ordered. palpable pulses. 2LNC, 98% POX. lungs diminished. IS encouraged, 500ml. CT x2, no air leak or crepitus noted. abdomen s/n, +nausea. hypoactive BS. Chambers in place, PA aware of UO. sternal incision approximated,
surgical adhesive in place. chest tube dressing c/d/i. RIJ cordis/swan maintained. R radial [place] flushed, zeroed, and calibrated. PIV. insulin gtt running per protocol. see worklist for VS, I&O, and assessment.
[2023-06-08 08:01] LABS: Glucose - Point of Care 112 mg/dl (70-99)
[2023-06-08] MEDS: SYMBICORT 160/4.5 MCG INHALER INH (09:09)
[2023-06-08] MEDS: LIDOCAINE 4% PATCH 1 PATCH TOPICAL (09:11)
[2023-06-08] MEDS: NSS (PRESERVATIVE FREE) 8 ML IV (09:11)
[2023-06-08] MEDS: PEPCID 20 MG IV (09:11)
[2023-06-08] MEDS: NEURONTIN 200 MG PO ×3 (09:12→20:58)
[2023-06-08] MEDS: VITAMIN C 500 MG PO (09:12)
[2023-06-08] MEDS: LEXAPRO 5 MG PO (09:12)
[2023-06-08] MEDS: PACERONE 200 MG PO ×3 (09:12→20:58)
[2023-06-08] MEDS: SENOKOT-S 1 TABLET PO ×2 (09:12→20:07)
[2023-06-08] MEDS: LOW STRENGTH ASPIRIN 81 MG PO (09:12)
[2023-06-08] MEDS: MAGNESIUM OXIDE PO (09:13)
[2023-06-08] MEDS: NON-FORMULARY ITEM INH (09:13)
[2023-06-08] MEDS: BACTROBAN 2% OINTMENT 1 APPLIC NASAL ×2 (09:14→20:08)
--- NOTE | 2023-06-08 09:43 | W.PN.INTV ---
Today's Communication / Plan
Recommendations
Continue amiodarone
Replete electrolytes with K >4, Mg>2
Encourage incentive spirometer
Pain control
Maintain MAP >65
Transfuse blood products as needed with goal Hb >8, platelets >20k
[facility]/pulmonary service will follow along while patient remains CVICU status.
Assessment
-
Assessment: 73-year-old F with PMHx of MV endocarditis who presents with elective mitral valve repair. She is known to cardiothoracic surgery service and had seen Dr. Kang on 05/23/2023. She has known moderate-severely eccentric MR and has been
experiencing SOB with activity. She meets Stage D symptomatology for MV repair as a class 1 indication. Today pt underwent sternotomy with radical MV repair with closure of ASD/PFO and NGUYEN-exclusion. There were no immediate complications and pt
was TRX to CVICU post-operatively for further care, with critical care services consulted for additional recommendations.
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
to CPAP
Impression:
#MV endocarditis with severe insufficiency s/p radical mitral valve repair (POD #1)
#Chronic anemia
#Hyperglycemia
#Hx of NSTEMI
#Depression
#Asthma not currently in an acute exacerbation
Plan:
Patient is being weaned down on supplemental O2
Titrate O2 flow rate to maintain SpO2 >90-94%
Encourage IS
PAC has been removed; removal of R-IJ cordis as per CT surgery
Maintain MAP>65
Monitor chest tube output (mediastinal chest tubes x2)
Monitor hemoglobin
Monitor platelet count and coags
Transfuse blood product if needed
CT surgery managing chest tubes
Monitor blood sugar with goal BG 140-180
Continue amiodarone
Aspiration precautions
DVT prophylaxis
Early nutrition
Early mobilization
[facility]/pulmonary service will continue to follow along while patient remains CVICU status.
Data:
CXR 06-08-2023: Postoperative chest. Removal of the endotracheal tube.
CXR 06-07-2023:
1. Tubes and lines are in satisfactory position.
2. Mild pulmonary vascular congestion.
3. Haziness of left hemidiaphragm, which may represent left lower lobe subsegmental atelectasis and/or small left pleural effusion.
Subjective Dataa
Subjective Data
Date of Service:
Date of Service: June 08, 2023
Chief Complaint: [facility] Follow Up
Subjective:
Patient seen and evaluated today at bedside. at bedside. Blood pressure 130/60, heart rate 66, saturating 95% on 1 L/min nasal cannula. Hb this morning was 8.5 and she was transfused 1 unit PRBC. Patient is on amiodarone at 0.5 mg/min.
Mediastinal chest tubes x [address] and there is no air leak seen. Patient is in much better spirits today. Still has some chest discomfort. Denies shortness of breath, headache, abdominal pain, fevers or chills.
Review of Systems
General: Other (12 point ROS performed and is negative unless mentioned above.)
Objective Data
Data Reviewed
Vital Signs / I&O / Oxygen:
Vital Signs
Temp Pulse Resp BP Pulse Ox
98.3 F 68 20 92/56 99
06/08/23 07:58 06/08/23 08:00 06/08/23 08:00 06/08/23 07:56 06/08/23 08:38
Intake and Output
06/07/23 06/08/23 06/09/23
06:59 06:59 06:59
Intake Total 2317.8 / 2359.3 154.7 / 154.7
Output Total 1615 / 1640 60 / 60
Balance 702.8 / 719.3 94.7 / 94.7
SaO2 [CPAP] 99
SaO2 [SIMV] 98
SaO2 99
Nasal Cannula flow liters per 2
minute
Physical Exam
General: Comfortable
HEENT: Normocephalic and Anicteric
Cardiovascular: S1-S2 and Peripheral Edema (negative)
Respiratory: Clear, Wheeze (negative), Crackles (negative) and Rhonchi (negative)
GI: Soft, Non Distended and Non Tender
Neurology: AO x 3 and No Motor Deficits
Skin: Warm and Dry
Labs/Micro/Reports
Lab Data
06/08/23 03:04
06/08/23 03:04
Laboratory Results
06/07/23 06/07/23
10:25 15:00
PT 15.9 H
INR 1.29
APTT 29.2
pH 7.40 7.38
pCO2 45 H 41 H
pO2 178 H 188 H
HCO3 27.9 24.3
O2 Delivery Level
Microbiology
06/07/23 08:30 Valve Gram Stain - Preliminary
[2023-06-08] MEDS: NSS IV (09:47)
[2023-06-08 10:12] LABS: Glucose - Point of Care 113 mg/dl (70-99)
[2023-06-08] MEDS: TYLENOL 1000 MG PO ×2 (11:38→20:07)
[2023-06-08] MEDS: FLEXBUMIN 100 IV ×2 (11:38→18:24)
[2023-06-08 11:46] LABS: Glucose - Point of Care 108 mg/dl (70-99)
[2023-06-08] MEDS: KLOR-CON 20 MEQ PO (12:39)
--- NOTE | 2023-06-08 12:45 | PTCARENOTE ---
insulin gtt dc'd as ordered. pt having runs of junctional rhythm w/ bigeminy, SBP 60-70s w/ ectopy. CONVENTIONAL MORTGAGE UNDERWRITER aware, Levophed titrated as ordered. EKG performed. A wires not sensing appropriately, CONVENTIONAL MORTGAGE UNDERWRITER aware. RIGhassan arechiga dc'd as ordered.
--- NOTE | 2023-06-08 13:23 | W.PN.CD ---
Today's Communication / Plan
-
agree with getting EP opinon on possible PPM
Impression / Plan
-
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
Primary [place] Attendant: Dr. Abraham ([facility])
Impression/Plan:
Mitral regurgitation S/P mitral valve repair by Dr. Kang 06/07/23
-Vegetation to PL and flail S/P P2 resection with band and NGUYEN clip
-Pre-op LVEF 60%, post no RWMA and EF 70% (CI 3.5)
-Hyperdynamic, no residual MR & MG 4mmHg
-ECHO today showed normal LV function, mean gradient 3mm Hg, no MR, pleural effusion
KAIA
-Post cross clamp, HR 130, CI > 3.5 there was evidence of dynamic KAIA with mild mitral insufficiency
-Disappeared with beta-blockade, amiodarone and volume loading
- She has some periods of junctional rhythm and some bigeminy- BP falls significantly during those. She may need PPM as BB will not currently be tolerated with some periods with junctional rhythm
S/P Thyroidectomy, hypothyroidism, on levothyroxine
Asthma, chronic
Subjective:
Comfortable in bed.
Physical Exam
Vital Signs/Labs
Vital Signs
Temp Pulse Resp BP Pulse Ox
98.9 F 75 21 92/56 96
06/08/23 13:00 06/08/23 13:00 06/08/23 13:00 06/08/23 12:00 06/08/23 13:00
06/07/23 06/08/23 06/09/23
06:59 06:59 06:59
Actual Weight 148 lb 9.465 oz 159 lb 13.362 oz
06/08/23 03:04
06/08/23 03:04
PT 15.9 Sec (11.4-14.6) H 06/07/23 10:25
INR 1.29 06/07/23 10:25
APTT 29.2 Sec (23.4-35.0) 06/07/23 10:25
Magnesium 2.4 mg/dl (1.6-2.3) H 06/08/23 03:04
05/19/23
12:18
Vbw-S-Ptzrbemvlcs Pept 476
Physical Exam
Constitutional: No acute distress and Comfortable
Cardiovascular: Rhythm & rate is regular and Murmur/rub/gallop absent
Respiratory: Respiratory effort normal, Wheeze Absent, Crackles Absent and Rhonchi Present
GI: Non tender
Neuro/Psych: Motor deficits absent
Data Reviewed
-
Date of Service: June 08, 2023
[2023-06-08] MEDS: FERRLECIT 110 MG IV (15:25)
--- NOTE | 2023-06-08 16:30 | PTCARENOTE ---
pt remains on Levophed gtt as ordered, pt washed w/ CHG wipes, gown changed, oral hygiene performed. patient sat on side of bed, chest PT performed. back lotioned. pt stood at side of bed, c/o of dizziness. placed back to bed. no dumping from CTs.
pt states she 'has trouble finding words at times', PIECER Bethany aware. patient able to answer all questions, JAUREGUI. follows commands.
--- NOTE | 2023-06-08 17:30 | PTCARENOTE ---
SCIENTIFIC MANAGER aware of UO, BMP sent. SCIENTIFIC MANAGER aware of results.
[2023-06-08 17:36] LABS: Blood Urea Nitrogen 33 mg/dl (7-17); Calcium 9.1 mg/dl (8.4-10.2); Carbon Dioxide 25 mmol/L (22-30); Chloride 105 mmol/L (98-107); Estimated Creatinine Clearance 62 ml/min; Glucose 114 mg/dl (70-99); Potassium 4.1 mmol/L (3.5-5.1); Sodium 135 mmol/L (135-145); eGFR > 60.00
--- NOTE | 2023-06-08 19:00 | PTCARENOTE ---
assumed care of patient @ 1900. received pt laying in bed, AOX3. mild c/o pain covered with tylenol. Currently NSR on monitor no junctional activity - AV wires not plugged in d/t apparent pacer competing and inappropriately sensing. BP 100s/50s.
Lungs clear, diminished on 1L satting 92 % - vigorous IS done with respiratory- pt pulling about 500 . occasional cough however not able to bring anything up. [address] draining serosang drainage no air leak tidaling or crepitus. bowel sounds
hypoactive, had poor appetite today. Sternal incision QA TESTER CDI. R IJ cordis, R rad a-line, R AC 20. lines zeroed, flushed. amio at .5 per order, levo remains off.
[2023-06-08] MEDS: SYMBICORT 160/4.5 MCG INHALER 2 PUFF INH (20:03)
[2023-06-08] MEDS: MAGNESIUM OXIDE 500 MG PO (20:07)
[2023-06-08] MEDS: REMERON 7.5 MG PO (20:58)
[2023-06-08] MEDS: SYNTHROID 88 MCG PO (20:58)
[2023-06-08] MEDS: NON-FORMULARY ITEM 1 UNIT PO (20:59)
--- NOTE | 2023-06-08 23:08 | PTCARENOTE ---
pt with 6 beats of junctional bigeminal rhythm while asleep - CTPA aware. levo turned on for soft BPs and to keep kidneys perfused per CTPA. no other change in assessment, resting comfortably.
[2023-06-09] VITALS (29 sets, daily range): BP systolic 92–147; BP diastolic 55–77; PULSE 68; O2SAT 97–98; BMI 27.1
[2023-06-09] MEDS: ALBUMIN 5% 250 IV (01:05)
--- NOTE | 2023-06-09 03:00 | PTCARENOTE ---
250 albumin ordered and given for BP and UO- labs drawn and sent, pt resting comfortably no change in assessment
[2023-06-09] MEDS: FLEXBUMIN 100 IV (03:11)
[2023-06-09 03:15] LABS: Hematocrit 25.6 % (37.0-47.0); Hemoglobin 8.8 g/dL (12.0-16.0); Mean Corp Hgb Conc. 34.4 g/dL (33.0-37.0); Mean Corpuscular Hgb 29.9 pg (27.0-31.0); Mean Corpuscular Volume 87.1 fL (81.0-99.0); Mean Platelet Volume 8.7 fL (7.4-10.4); Platelet Count 147 10^3/uL (130-400); Red Blood Cell Count 2.94 10^6/uL (4.20-5.40); Red Cell Dist. Width 17.4 % (11.5-14.5); White Blood Cell Count 7.2 10^3/uL (4.8-10.8)
[2023-06-09 03:34] LABS: Blood Urea Nitrogen 29 mg/dl (7-17); Calcium 8.8 mg/dl (8.4-10.2); Carbon Dioxide 23 mmol/L (22-30); Chloride 105 mmol/L (98-107); Estimated Creatinine Clearance 71 ml/min; Glucose 120 mg/dl (70-99); Potassium 3.9 mmol/L (3.5-5.1); Sodium 136 mmol/L (135-145); eGFR > 60.00
[2023-06-09] MEDS: TYLENOL 1000 MG PO ×3 (04:41→20:51)
[2023-06-09] MEDS: KCL 20 MEQ PO (04:41)
--- NOTE | 2023-06-09 05:00 | PTCARENOTE ---
upon wakening - pt with difficulty speaking - pt with severe word searching, unable to tell me her name and birthday and instead speaking incomprehensibly. this did improve in a couple minutes however pt still displaying word searching and slight
aphasia- CTPA in to assess immediately and NIH done - scored 1 for aphasia. Will do another NIH at 6 AM. Afterwards, pt stood to scale and chair, hypotensive to SBP 70s and pt with poor balance - sat down in chair with resolution. pt denied feeling
dizzy and states she is unstable at baseline. pt now resting in chair comfortably, call martinez within reach
--- NOTE | 2023-06-09 05:48 | W.PN.CT ---
Today's Communication / Plan
-
-pod #2
-pt had difficulty when woke up around 5 am saying her name or - vital signs stable, BP ok - within 5-10 min improved and answered all questions correctly. NIH score 1 for mild aphasia- monitor closely.
-pt recalled having similar difficulty while her family was here 06/08. She believes that it is worse in the mornings and better later in the day. She had no difficulty with speech or mentations for me last night.
-intermittent episodes of very brief junctional rhythm with ventricular bigeminy- continue holding Lopressor
-gave 1 Albumin overnight for hypotension
-drips: Amio 0.5, Levo 1
-CT output: 2 meds 95/215 in 12/24 hrs (no air leak)
-current meds (ASA, Amio, 25% Albumin x3, iv iron, vit C, Gabapentin, Lidocaine patch, Toradol iv prn x3, Mucinex). Holding BB d/t intermittent junctional rhythm. Holding narcs d/t hx of intolerance
-maintain Chambers for critical I&O (UO 20-40 cc per hr overnight)
-encourage IS, OOB
Assessment / Plan
-
Assessment:
Sternotomy with aortic and bicaval cannulation/Radical mitral valve repair (debridement of mitral valve leaflets, triangular resection of P2 scallop, 28 mm band annuloplasty)/Closure of ASD/PFO/Left atrial appendage exclusion (35 mm) by Dr. Kang,
06/07/23, pod#2
-ALEX: Pre-op LVEF 60%, post no RWMA and EF 70% (CI 3.5); KAIA; Hyperdynamic, no residual MR & MG 4mmHg
-Post cross clamp, HR 130, CI > 3.5 there was evidence of dynamic KAIA with mild mitral insufficiency
-KAIA disappeared with beta-blockade, amiodarone and volume loading
-Mitral valve endocarditis (Lactobacillus)
-Severe MR/Degenerative mitral valve disease, type II with flail of P2
-PFO/ASD
-Intraop Tachycardia, KAIA (resolved with BB/IV fluids)
-LVEF 55-60%
-Elevated [id number] score of 4
-NSTEMI
-Anemia
-Hx of electrolyte imbalance (hypokalemia, hypocalcemia, hyponatremia, hypomagnesemia)
-Malnourishment, failure to thrive
-Multiple urinary tract infections
-Depression
-ELVIRA (uses CPAP)
-Asthma
-Osteomyelitis/discitis of the spine
-Sacroiliitis
-Hx Thyroid ca S/P thyroidectomy, XRT, 2010
-Hypothyroidism
-S/p L TKA, 09/2022
-S/p Appendectomy
-S/p
-S/P Abdominoplasty, 1989
-Acute postop blood loss/anemia on chronic anemia (transfused 1u PRBC's on 06/07 and 1 unit on 06/08)
-Acute postop atelectasis/pleural effusion
-Acute postop hypovolemia with subsequent hypervolemia
-Acute postop prolonged QT (QTc 493)
-Acute postop ectopies/bigeminy, started on amiodarone gtt
-Acute postop intermittent junctional rhythm with ventricular bigeminy- holding BB
-Acute postop brief intermittent episodes of mild aphasia
-ECHO 06/08 showed normal LV function, mean gradient 3mm Hg, no MR, pleural effusion present
Discussed patient care with: Nursing and Care Team
Subjective
Procedure
Sternotomy with aortic and bicaval cannulation/Radical mitral valve repair (debridement of mitral valve leaflets, triangular resection of P2 scallop, 28 mm band annuloplasty)/Closure of ASD/PFO/Left atrial appendage exclusion (35 mm) by Dr. Kang,
06/07/23
-
Date of Service: June 09, 2023
Objective Data
-
PT 15.9 Sec (11.4-14.6) H 06/07/23 10:25
INR 1.29 06/07/23 10:25
APTT 29.2 Sec (23.4-35.0) 06/07/23 10:25
Vital Signs
Vital Signs
Temp Pulse Resp BP Pulse Ox
97.7 F 71 16 123/73 93
06/08/23 23:00 06/09/23 01:00 06/09/23 01:00 06/09/23 01:00 06/09/23 01:00
CT Intake/Output/Weight
06/08/23 06/08/23 06/09/23
06:59 18:59 06:59
Intake Total 819.0 / 2359.3 676.2 / 878.2 202.0 / 878.2
Output Total 655 / 1640 320 / 510 190 / 510
Balance 164.0 / 719.3 356.2 / 368.2 12.0 / 368.2
SaO2: 93
Physical Exam
-
General: Awake and AOx3
Cardiovascular: Regular rate & rhythm, No Murmurs and No Rub
Respiratory: Decreased Breath Sounds
Sternum: Stable
Incision: Clean, Dry and Dressing Intact
Extremities: Edema +1 (1+ DP b/l palpable)
Abdomen: soft, nontender, nondistended, + bowel sounds
Data Reviewed
-
Lab Results: Results Reviewed
Medications: Active Meds Reviewed
Chest X-Ray: Report Reviewed and Image Reviewed
ECG: Report Reviewed and Image Reviewed
[2023-06-09] MEDS: NON-FORMULARY ITEM 1 MCG INH (07:15)
[2023-06-09] MEDS: SYMBICORT 160/4.5 MCG INHALER 2 PUFF INH ×2 (07:18→19:48)
--- NOTE | 2023-06-09 07:37 | PTCARENOTE ---
pt taken for stat CT with help of day shift nurse. NIH done upon arrival back to the floor with improvement in aphasia, new score 0.
--- NOTE | 2023-06-09 07:48 | PTCARENOTE ---
Patient received from nightshift nurse. Accompanied patient and nightshift RN to CT scan of the head. When patient came back from CT, both RNs did an NIHSS assessment during handout validation. NIHSS 0, symptoms of aphasia resolved. Dr. Kang rounded
at bedside - would like patient to receive Midodrine. Patient is alert and oriented x4, pleasant. No facial droop noted. Pupils 3mm brisk. +4 muscle strength grading in all extremities, no drifting noted. Denies pain/discomfort. NSR with occasional
junctional rhythm at times. A/V wires maintained to pacer box with settings: AAI HR 40, AmA 10, A sensitivity 0.5. V wire disconnected r/t competition, but wires checked w/ VmA 8 and V sensitivity 0.8. HR 60s-70s. Audible heart tones. R radial
a-line maintained with BP 110s-120s/60s. LUE BP cuff 119/62. RIJ cordis maintained with KVO. Levo gtt titrated off. Amio gtt maintained at 0.5mg/min. Palpable pulses. +1 LE edema and +1 bilateral hand edema. 2L NC maintained. Oxygen saturation 96%.
Upon auscultation, lung sounds diminished throughout with fine crackles in the LLL. IS 500. MS CTx2 maintained to -20cm wall suction. No air leaks noted. Minimal serosanguineous drainage. Abdomen round. +BS. Per patient, passing gas. Chambers
maintained with clear, yellow UOP. Sternal incision is approximated with surgical adhesive and open to air. CT dressing clean, dry, intact. Assist x2 OOB into chair. Will continue to monitor.
[2023-06-09] MEDS: VITAMIN C 500 MG PO (08:32)
[2023-06-09] MEDS: PACERONE 200 MG PO ×3 (08:32→20:51)
[2023-06-09] MEDS: MUCINEX 600 MG PO ×2 (08:33→20:50)
[2023-06-09] MEDS: MAGNESIUM OXIDE 500 MG PO ×2 (08:33→20:51)
[2023-06-09] MEDS: LEXAPRO 5 MG PO (08:33)
[2023-06-09] MEDS: LOW STRENGTH ASPIRIN 81 MG PO (08:33)
[2023-06-09] MEDS: ProAmatine 10 MG PO (08:33)
[2023-06-09] MEDS: NEURONTIN 200 MG PO ×3 (08:33→20:50)
[2023-06-09] MEDS: BACTROBAN 2% OINTMENT 1 APPLIC NASAL ×2 (08:34→20:52)
[2023-06-09] MEDS: SENOKOT-S 1 TABLET PO ×2 (08:35→20:50)
[2023-06-09] MEDS: LIDOCAINE 4% PATCH TOPICAL (08:35)
--- NOTE | 2023-06-09 08:58 | W.PN.CD ---
Today's Communication / Plan
-
stop IV amiodarone
lopressor remains on hold
monitor tele
EP eval tomorrow
discussed with CT surgery team
Impression / Plan
-
Background: 73F with lactobacillic MV infective endocarditis (diagnosed at [facility]) with MR presents for mitral valve repair
Primary Party Plan Sales Agent: Dr. Abraham ([facility])
Impression/Plan:
Mitral regurgitation S/P mitral valve repair by Dr. Kang 06/07/23
-Vegetation to PL and flail S/P P2 resection with band and NGUYEN clip
-Pre-op LVEF 60%, post no RWMA and EF 70% (CI 3.5)
-Hyperdynamic, no residual MR & MG 4mmHg
-ECHO 06/08 showed normal LV function, mean gradient 3mm Hg, no MR, pleural effusion
Rhythm
-periods of junctional rhythm post op, also frequent ventricular ectopy
-currently on IV amiodarone, and rhythm is sinus HR 70s today
-stop IV amiodarone, and will continue typical post op PO amiodarone ppx
-lopressor remains on hold
KAIA
-Post cross clamp, HR 130, CI > 3.5 there was evidence of dynamic KAIA with mild mitral insufficiency
-resolved with better HR control, and not present on TTE yesterday
S/P Thyroidectomy, hypothyroidism, on levothyroxine
Asthma, chronic
Subjective:
+fatigue
Physical Exam
Vital Signs/Labs
Vital Signs
Temp Pulse Resp BP Pulse Ox
97.8 F 71 16 111/76 95
06/09/23 03:00 06/09/23 08:33 06/09/23 07:21 06/09/23 08:33 06/09/23 08:30
06/08/23 06/09/23 06/10/23
06:59 06:59 06:59
Actual Weight 72.5 kg 71.6 kg
06/09/23 03:08
06/09/23 03:08
PT 15.9 Sec (11.4-14.6) H 06/07/23 10:25
INR 1.29 06/07/23 10:25
APTT 29.2 Sec (23.4-35.0) 06/07/23 10:25
Magnesium 2.4 mg/dl (1.6-2.3) H 06/08/23 03:04
05/19/23
12:18
Bjv-[id number]-Yqbmrtmbawz Pept 476
Physical Exam
Constitutional: No acute distress and Comfortable
EENT: Moist mucous membranes
Cardiovascular: Rhythm & rate is regular, Pedal edema is absent, JVD pressure is normal and Systolic murmur absent
Respiratory: Respiratory effort normal and Lungs clear to auscul.
GI: Soft and Distention absent
Neuro/Psych: AO x 3
Data Reviewed
-
Date of Service: June 09, 2023
EKG: Other (Tele: SR 70s)
--- NOTE | 2023-06-09 09:39 | PTCARENOTE ---
MS CT x2 discontinued per order and per protocol. Patient tolerated. New dressing applied. Will continue to monitor.
--- NOTE | 2023-06-09 10:20 | PN.CDI ---
CDI
- -
CDI:
Physician Documentation Request
Admit Date: 06/07/23 05:09
Dear Doctor Pearl,
Clinical Indicators:
Patient admitted with mitral valve endocarditis & severe MR/degenerative mitral valve disease; s/p mitral valve repair, closure of ASD & left atrial appendage exclusion 06/07.
05/19 CM note,'Patient was recently on a 6 wk course of IV ABT.'
06/07 OP Report, Pre Op Diagnosis: 'Mitral valve endocarditis with degenerative mitral valve disease with severe sufficiency.'
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
Please clarify which of the following accurately represents the acuity of the infective endocarditis. Possible options might include:
Acute
Subacute
Chronic
Other, please specify
Use of terms such as suspected, likely, concern for, or probable (associated with a specific diagnosis that is being evaluated, monitored, or treated as if it exists) are acceptable and can be coded in the inpatient setting, when documented at the
time of discharge.
Thank you,
MIGUEL Truong RN
CDI Specialist
available via tiger text
Please use your independent medical judgment in providing your response.
--- NOTE | 2023-06-09 11:21 | CM ---
Reviewed chart. Met with Mrs. Moreno to review discharge plans. She states she is feeling okay. She states she is having word finding difficulties. Prior to admission she resides with her spouse and two sons in a two story home. Prior to
admission she was independent with ambulation and adls. She has a single point cane and CPAP Machine at home. Medical work-up in progress. The discharge plan is to return home with her spouse and sons with a home visit by the Cardiothoracic
Transitional Care Nurse when medically stable.
--- NOTE | 2023-06-09 12:07 | PTCARENOTE ---
Vital signs stable. NSR. HR 60s. A wire maintained to pacer-box with settings: AAI HR 40, AmA 10, sensitivity 0.5. V wire connected but turned off r/t competition, despite sensitivity adjustment. BP 123/76 via LUE BP cuff. R radial a-line maintained
with BP 140s/60s. Weaned to RA. Oxygen saturation 93%. Patient ambulated in room with 1 assist and RW to wash her face and brush her teeth. Will speak about the plan of care to Dr. Kang and his team.
[2023-06-09] MEDS: NSS IV (12:13)
--- NOTE | 2023-06-09 13:05 | PTCARENOTE ---
R radial a-line discontinued per order and per protocol. Patient tolerated. New dressing applied. Chambers discontinued per order and per protocol. Patient tolerated. Due to void around 1850.
[2023-06-09] MEDS: ProAmatine PO (13:11)
[2023-06-09] MEDS: ProAmatine 5 MG PO ×2 (14:09→17:22)
[2023-06-09] MEDS: FERRLECIT 110 MG IV (14:24)
--- NOTE | 2023-06-09 17:50 | W.PN.INTV ---
Today's Communication / Plan
Recommendations
Continue amiodarone
Replete electrolytes with K >4, Mg>2
Encourage incentive spirometer
Pain control
Maintain MAP >65
Transfuse blood products as needed with goal Hb >8, platelets >20k
Patient currently CVICU-telemetry status. [employer] Advisor/pulmonary service will now sign off. Please reconsult if there are any additional questions/concerns.
Assessment
-
Assessment: 73-year-old F with PMHx of MV endocarditis who presents with elective mitral valve repair. She is known to cardiothoracic surgery service and had seen Dr. Kang on 05/23/2023. She has known moderate-severely eccentric MR and has been
experiencing SOB with activity. She meets Stage D symptomatology for MV repair as a class 1 indication. Today pt underwent sternotomy with radical MV repair with closure of ASD/PFO and NGUYEN-exclusion. There were no immediate complications and pt
was TRX to CVICU post-operatively for further care, with critical care services consulted for additional recommendations.
Chronic medical conditions [employer]:: mitral valve endocarditis, L5-OM, sacroiliitis, Hx of UTI, lactobacillus bacteremia, lower back pain, depression, asthma, hypothyroidism, Hx of thyroid cancer s/p thyroidectomy, Hx of NSTEMI, Hx of ELVIRA non-compliant
to CPAP
Impression:
#MV endocarditis with severe insufficiency s/p radical mitral valve repair (POD #2)
#Chronic anemia - stable
#Hyperglycemia - resolved
#Hx of NSTEMI
#Depression
#Asthma not currently in an acute exacerbation
Plan:
Maintain SpO2 >90-94%
Encourage IS
Continue home inhalers with prn albuterol (MDI and neb)
Removal of R-IJ cordis as per CT surgery
Maintain MAP>65
Chest tubes already removed
Monitor hemoglobin
Monitor platelet count and coags
Transfuse blood product if needed
Monitor blood sugar with goal BG 140-180
Continue amiodarone
Aspiration precautions
DVT prophylaxis
Early nutrition
Early mobilization
Patient currently CVICU-telemetry status. [employer] Advisor/pulmonary service will now sign off. Thank you for allowing me to be involved in care of this patient. Please reconsult if there are any additional questions/concerns.
Data:
CXR 06-09-2023: Continued improved aeration. Minimal residual bibasilar atelectasis and pleural fluid left greater than right.
CXR 06-08-2023: Postoperative chest. Removal of the endotracheal tube.
CXR 06-07-2023:
1. Tubes and lines are in satisfactory position.
2. Mild pulmonary vascular congestion.
3. Haziness of left hemidiaphragm, which may represent left lower lobe subsegmental atelectasis and/or small left pleural effusion.
CT Head 06-09-2023: No acute intracranial abnormality.
Subjective Dataa
Subjective Data
Date of Service:
Date of Service: June 09, 2023
Chief Complaint: [employer] Advisor Follow Up
Subjective:
Patient seen this afternoon. She is on room air, saturating 94%. Heart rate 73. No acute events reported overnight. Feels like she has memory loss since the procedure. Son at bedside. I answered all of his questions.
Review of Systems
General: Other (Negative unless mentioned above)
Objective Data
Data Reviewed
Vital Signs / I&O / Oxygen:
Vital Signs
Temp Pulse Resp BP Pulse Ox
98.3 F 75 17 119/73 96
06/09/23 16:00 06/09/23 17:22 06/09/23 16:00 06/09/23 17:22 06/09/23 17:00
Intake and Output
06/08/23 06/09/23 06/10/23
06:59 06:59 06:59
Intake Total 2317.8 / 2359.3 988.8 / 1023.0 860.9 / 860.9
Output Total 1615 / 1640 695 / 745 775 / 775
Balance 702.8 / 719.3 293.8 / 278.0 85.9 / 85.9
SaO2 [CPAP] 99
SaO2 [SIMV] 98
SaO2 96
Nasal Cannula flow liters per 2
minute
Physical Exam
General: Comfortable
HEENT: Normocephalic, Anicteric and Other (Right IJ-cordis in place)
Cardiovascular: S1-S2 and Peripheral Edema (negative)
Respiratory: Clear, Wheeze (negative), Crackles (negative) and Rhonchi (negative)
GI: Soft, Non Distended and Non Tender
Neurology: AO x 3 and No Motor Deficits
Skin: Warm and Dry
Labs/Micro/Reports
Lab Data
06/09/23 03:08
06/09/23 03:08
Microbiology
06/07/23 08:30 Valve Tissue Culture - Preliminary
No Growth After 48 Hours
06/07/23 08:30 Valve Gram Stain - Preliminary
--- NOTE | 2023-06-09 19:00 | PTCARENOTE ---
assumed care of patient @ 1900. received pt laying in bed, AOX3. No aphasia noted, however patient is anxious, emotional support provided. NSR on monitor, +pulses +1 upper and lower extremity edema. Lungs diminished throughout, fine crackles noted
on L base. IS about 500. Round belly, passing gas. voided in hat irena urine earlier. Sternal incision with glue CDI MODESTO. R IJ cordis with kvo patent. R AC PIV patent. Pt resting in bed comfortably with family at bedside.
[2023-06-09] MEDS: SYNTHROID 88 MCG PO (20:50)
[2023-06-09] MEDS: REMERON 7.5 MG PO (20:52)
[2023-06-09] MEDS: NON-FORMULARY ITEM 1 UNIT PO (20:53)
[2023-06-10] VITALS (10 sets, daily range): BP systolic 92–134; BP diastolic 63–78; PULSE 77; O2SAT 93–95; BMI 26.8
--- NOTE | 2023-06-10 | PTCARENOTE ---
Pt resting comfortably, no change in assessment, call martinez within reach
--- NOTE | 2023-06-10 04:00 | PTCARENOTE ---
labs drawn and sent, pt resting comfortably no change in assessment
[2023-06-10 04:38] LABS: Hematocrit 26.8 % (37.0-47.0); Hemoglobin 8.8 g/dL (12.0-16.0); Mean Corp Hgb Conc. 32.8 g/dL (33.0-37.0); Mean Corpuscular Hgb 29.5 pg (27.0-31.0); Mean Corpuscular Volume 89.9 fL (81.0-99.0); Platelet Count 162 10^3/uL (130-400); Red Blood Cell Count 2.98 10^6/uL (4.20-5.40); Red Cell Dist. Width 17.1 % (11.5-14.5); White Blood Cell Count 6.6 10^3/uL (4.8-10.8)
[2023-06-10 04:55] LABS: Blood Urea Nitrogen 21 mg/dl (7-17); Calcium 8.6 mg/dl (8.4-10.2); Carbon Dioxide 27 mmol/L (22-30); Chloride 103 mmol/L (98-107); Estimated Creatinine Clearance 82 ml/min; Glucose 98 mg/dl (70-99); Magnesium 2.1 mg/dl (1.6-2.3); Potassium 3.7 mmol/L (3.5-5.1); Sodium 137 mmol/L (135-145); eGFR > 60.00
--- NOTE | 2023-06-10 05:34 | W.PN.CT ---
Addendum entered and electronically signed by Paras Hendricks PA-C 06/10/23 12:59:
Please add to diagnosis
Subacute Mitral valve endocarditis (Lactobacillus), Treated recently with outpatient 6 wk course of IV Antibiotics
Original Note:
Today's Communication / Plan
-
-pod #3
-no significant issues overnight, no drips
-brief episode of sinus bradycardia (not junctional) with PVCs while sleeping with few a-paced beats- EP eval pending; holding BB postop
-on po Amio for V-bigeminy/ectopy
-head CT 06/09 unremarkable. Pt has no neuro sxs last night, speech is fluent, appropriate, A&O x4. Son is at bedside. Started on Midodrine 5 tid on 06/09 to maintain map >70, continue ASA
-avoiding narcs postop d/t intolerance
-CTs dcd
-weaned off O2 - pOx 92-95% on RA
-encourage IS (750 so far), OOB, ambulate
-appreciate everyone's input
Assessment / Plan
-
Assessment:
Sternotomy with aortic and bicaval cannulation/Radical mitral valve repair (debridement of mitral valve leaflets, triangular resection of P2 scallop, 28 mm band annuloplasty)/Closure of ASD/PFO/Left atrial appendage exclusion (35 mm) by Dr. Kang,
06/07/23, pod#3
-ALEX: Pre-op LVEF 60%, post no RWMA and EF 70% (CI 3.5); KAIA; Hyperdynamic, no residual MR & MG 4mmHg
-Post cross clamp, HR 130, CI > 3.5 there was evidence of dynamic KAIA with mild mitral insufficiency
-KAIA disappeared with beta-blockade, amiodarone and volume loading
-Mitral valve endocarditis (Lactobacillus)
-Severe MR/Degenerative mitral valve disease, type II with flail of P2
-PFO/ASD
-Intraop Tachycardia, KAIA (resolved with BB/IV fluids)
-LVEF 55-60%
-Elevated [id number] score of 4
-NSTEMI
-Anemia
-Hx of electrolyte imbalance (hypokalemia, hypocalcemia, hyponatremia, hypomagnesemia)
-Malnourishment, failure to thrive
-Multiple urinary tract infections
-Depression
-ELVIRA (uses CPAP)
-Asthma
-Osteomyelitis/discitis of the spine
-Sacroiliitis
-Hx Thyroid ca S/P thyroidectomy, XRT, 2010
-Hypothyroidism
-S/p L TKA, 09/2022
-S/p Appendectomy
-S/p
-S/P Abdominoplasty, 1989
-Acute postop blood loss/anemia on chronic anemia (transfused 1u PRBC's on 06/07 and 1 unit on 06/08)
-Acute postop atelectasis/pleural effusion
-Acute postop hypovolemia with subsequent hypervolemia
-Acute postop prolonged QT (QTc 493)
-Acute postop ectopies/bigeminy, started on amiodarone gtt
-Acute postop intermittent junctional rhythm with ventricular bigeminy- holding BB
-Acute postop brief intermittent episodes of mild expressive aphasia - unremarkable head CT 06/09/23
-ECHO 06/08 showed normal LV function, mean gradient 3mm Hg, no MR, pleural effusion present
Discussed patient care with: Nursing and Care Team
Subjective
Procedure
Sternotomy with aortic and bicaval cannulation/Radical mitral valve repair (debridement of mitral valve leaflets, triangular resection of P2 scallop, 28 mm band annuloplasty)/Closure of ASD/PFO/Left atrial appendage exclusion (35 mm) by Dr. Kang,
06/07/23
-
Date of Service: June 10, 2023
Objective Data
-
PT 15.9 Sec (11.4-14.6) H 06/07/23 10:25
INR 1.29 06/07/23 10:25
APTT 29.2 Sec (23.4-35.0) 06/07/23 10:25
Vital Signs
Vital Signs
Temp Pulse Resp BP Pulse Ox
98.1 F 68 16 113/67 92
06/10/23 00:25 06/10/23 00:25 06/10/23 00:25 06/09/23 23:13 06/10/23 00:25
CT Intake/Output/Weight
06/09/23 06/09/23 06/10/23
06:59 18:59 06:59
Intake Total 312.6 / 1023.0 860.9 / 1420.9 560 / 1420.9
Output Total 375 / 745 775 / 975 200 / 975
Balance -62.4 / 278.0 85.9 / 445.9 360 / 445.9
SaO2: 92
Physical Exam
-
General: Awake and AOx3
Cardiovascular: Regular rate & rhythm, No Murmurs and No Rub
Respiratory: Rales (at bases b/l, no wheeze)
Sternum: Stable
Incision: Clean, Dry and Dressing Intact
Extremities: Edema +1
Data Reviewed
-
Lab Results: Results Reviewed
Medications: Active Meds Reviewed
Chest X-Ray: Report Reviewed and Image Reviewed
ECG: Report Reviewed and Image Reviewed
[2023-06-10] MEDS: KCL 40 MEQ PO (06:06)
[2023-06-10] MEDS: TYLENOL 1000 MG PO ×3 (06:07→20:28)
--- NOTE | 2023-06-10 08:00 | PTCARENOTE ---
pt received from previous RN, oriented, OOB in chair. SR on the monitor, HR 70s. A&V wires in place, AAI 40/10. SBP 110s. palpable pulses, +2 LE edema. pt on RA, 94% POX. lungs diminished, crackles at bases. IS encouraged, 500-1000ml. chest PT
performed. pt abdomen s/n, denies n/v. diet tolerated well. +BS, +flatus. small BM. voids. pt ambulated in hallway w/ RW and assist. sternal incision approximated w/ surgical adhesive present. chest tube dressing c/d/i. RIJ cordis maintained. PIV.
see worklist for VS, I&O, and assessment.
[2023-06-10] MEDS: SENOKOT-S 1 TABLET PO ×2 (09:05→20:27)
[2023-06-10] MEDS: MAGNESIUM OXIDE 500 MG PO ×2 (09:05→20:27)
[2023-06-10] MEDS: NEURONTIN 200 MG PO ×3 (09:05→20:40)
[2023-06-10] MEDS: LOW STRENGTH ASPIRIN 81 MG PO (09:05)
[2023-06-10] MEDS: PROTONIX 40 MG PO (09:05)
[2023-06-10] MEDS: ProAmatine 5 MG PO ×3 (09:05→17:45)
[2023-06-10] MEDS: LEXAPRO 5 MG PO (09:05)
[2023-06-10] MEDS: PACERONE 200 MG PO ×3 (09:05→20:38)
[2023-06-10] MEDS: VITAMIN C 500 MG PO (09:05)
[2023-06-10] MEDS: MUCINEX 600 MG PO ×2 (09:06→20:27)
[2023-06-10] MEDS: BACTROBAN 2% OINTMENT 1 APPLIC NASAL ×2 (09:06→20:27)
[2023-06-10] MEDS: LIDOCAINE 4% PATCH 1 PATCH TOPICAL (09:06)
--- NOTE | 2023-06-10 09:39 | CM ---
Reviewed chart. Met with Mrs.. Moreno to review discharge plans. She states she is feeling much better and maybe able to g home soon. She states prior to admission she resides with her spouse and two sons in a three story home with two steps to
enter. She states she has a in-law suite on the first floor and she is planning to stay on the first floor when she gets home. She states her spouse will be home and her two sons supervisor ornamental ironworking so they will be available to assist in her care if
needed. We reviewed a home visit by the Cardiothoracic Transitional Care Nurse and she is agreeable to a home visit. Medical work-up in progress. The discharge plan is to return home with his spouse and sons with a home visit by the
Cardiothoracic Transitional Care Nurse when medically stable.
[2023-06-10] MEDS: SYMBICORT 160/4.5 MCG INHALER 2 PUFF INH (10:06)
[2023-06-10] MEDS: NON-FORMULARY ITEM 100 MCG INH (10:07)
[2023-06-10] MEDS: NSS 500 IV (12:11)
--- NOTE | 2023-06-10 12:15 | PTCARENOTE ---
pt VSS, no changes in assessment. pt ambulating in hallway w/ RW and stand by assist. OOB in chair. IS encouraged. voids in bathroom, +BM.
--- NOTE | 2023-06-10 14:31 | W.PN.CD ---
Today's Communication / Plan
-
- Start Toprol today
-Hold Amiodarone
Impression / Plan
-
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
Primary Reverberatory Skimmer: Dr. Abraham ([facility])
Impression/Plan:
Mitral regurgitation S/P mitral valve repair by Dr. Kang 06/07/23
-Vegetation to PL and flail S/P P2 resection with band and NGUYEN clip
-Pre-op LVEF 60%, post no RWMA and EF 70% (CI 3.5)
-Hyperdynamic, no residual MR & MG 4mmHg
-ECHO 06/08 showed normal LV function, mean gradient 3mm Hg, no MR, pleural effusion
Rhythm
-periods of junctional rhythm post op, also frequent ventricular ectopy
-Recovered now and has normal AV conduction with sinus rhythm.
- OK to start Toprol 25 mg BID today
-Holding Amio for now
-No indication for PPM now
KAIA
-Post cross clamp, HR 130, CI > 3.5 there was evidence of dynamic KAIA with mild mitral insufficiency
-resolved with better HR control, and not present on TTE
S/P Thyroidectomy, hypothyroidism, on levothyroxine
Asthma, chronic
Subjective:
+fatigue
Physical Exam
Vital Signs/Labs
Vital Signs
Temp Pulse Resp BP Pulse Ox
98 F 81 18 112/75 91
06/10/23 12:00 06/10/23 12:00 06/10/23 12:00 06/10/23 12:00 06/10/23 12:00
06/09/23 06/10/23 06/11/23
06:59 06:59 06:59
Actual Weight 71.6 kg 70.9 kg
06/10/23 04:22
06/10/23 04:22
PT 15.9 Sec (11.4-14.6) H 06/07/23 10:25
INR 1.29 06/07/23 10:25
APTT 29.2 Sec (23.4-35.0) 06/07/23 10:25
Magnesium 2.1 mg/dl (1.6-2.3) 06/10/23 04:22
05/19/23
12:18
[id number] Pept 476
Physical Exam
Constitutional: No acute distress and Comfortable
EENT: Anicteric and Moist mucous membranes
Cardiovascular: Rhythm & rate is regular, JVD present and Systolic murmur present
Respiratory: Respiratory effort normal, Lungs clear to auscul., Wheeze Absent and Rhonchi Present
GI: Soft, Normal bowel sounds and Distention present
Neuro/Psych: Alert
Data Reviewed
-
Date of Service: June 10, 2023
Medical Decision Making: Reviewed Test Results and Tests Ordered
EKG: Tracing Personally Visualized and interpreted
Echo: Report Reviewed by me
Labs: Labs Reviewed by me
Old Records: Reviewed
[2023-06-10] MEDS: KCL 20 MEQ PO (15:04)
[2023-06-10] MEDS: FERRLECIT 110 MG IV (15:05)
--- NOTE | 2023-06-10 16:15 | PTCARENOTE ---
pt VSS, no changes in assessment. OOB in chair. IS encouraged.
[2023-06-10] MEDS: SYMBICORT 160/4.5 MCG INHALER INH (20:05)
[2023-06-10] MEDS: SYNTHROID 88 MCG PO (20:27)
[2023-06-10] MEDS: TOPROL XL 12.5 MG PO (20:27)
--- NOTE | 2023-06-10 20:30 | PTCARENOTE ---
Received pt from [facility]. OOB sitting in chair. AAOx4. NIH 0. Denies pain. NSR on monitor, HR 80s. Epicardial A/V wires present, AAI 40/10.+palpable pulses. +2 BL LE edema. Pulse ox 97% on RA. Lung sounds diminished with crackles in bases. IS
encouraged, up to [id number]. Abdomen soft/nontender. +BS, small BM. Pt voiding spontaneously. Sternal incision approximated with surgical adhesive. CT dressing C/D/I. Pt ambulated hallway with this RN and use of rolling walker. RIJ cordis maintained
with NSS KVO. See worklist for full assessment and interventions.
[2023-06-10] MEDS: NON-FORMULARY ITEM 1 UNIT PO (20:33)
[2023-06-10] MEDS: REMERON 7.5 MG PO (20:40)
[2023-06-11] VITALS (11 sets, daily range): BP systolic 103–121; BP diastolic 63–74; PULSE 97; O2SAT 93–96; BMI 27.0
--- NOTE | 2023-06-11 00:30 | PTCARENOTE ---
Pt assessment unchanged. VSS. NSR on monitor. Pt resting comfortably at this time.
[2023-06-11 03:38] LABS: Hematocrit 27.4 % (37.0-47.0); Mean Corp Hgb Conc. 32.8 g/dL (33.0-37.0); Mean Corpuscular Hgb 28.8 pg (27.0-31.0); Mean Corpuscular Volume 87.8 fL (81.0-99.0); Mean Platelet Volume 8.9 fL (7.4-10.4); Platelet Count 196 10^3/uL (130-400); Red Blood Cell Count 3.12 10^6/uL (4.20-5.40); Red Cell Dist. Width 16.6 % (11.5-14.5); White Blood Cell Count 6.2 10^3/uL (4.8-10.8)
[2023-06-11 04:00] LABS: Blood Urea Nitrogen 22 mg/dl (7-17); Calcium 8.4 mg/dl (8.4-10.2); Carbon Dioxide 27 mmol/L (22-30); Chloride 104 mmol/L (98-107); Estimated Creatinine Clearance 73 ml/min; Glucose 94 mg/dl (70-99); Potassium 4.1 mmol/L (3.5-5.1); Sodium 136 mmol/L (135-145); eGFR > 60.00
--- NOTE | 2023-06-11 04:31 | PTCARENOTE ---
Pt assessment remains unchanged from previous. VSS. NSR on monitor. AM labs obtained and sent. Pt assist x1 with walker to bathroom. Denies any other needs at this time.
[2023-06-11] MEDS: TYLENOL PO (05:03)
--- NOTE | 2023-06-11 05:27 | W.PN.CT ---
Today's Communication / Plan
-
-pod #4
-no issues overnight, ambulates in hallways
-started on Toprol 12.5 mg 06/10, continue Amio po
-nsr 70s overnight
-on Midodrine, holding off on diuretics
-follow 2v-CXR today
-encourage IS, OOB, ambulate
Assessment / Plan
-
Assessment:
Sternotomy with aortic and bicaval cannulation/Radical mitral valve repair (debridement of mitral valve leaflets, triangular resection of P2 scallop, 28 mm band annuloplasty)/Closure of ASD/PFO/Left atrial appendage exclusion (35 mm) by Dr. Kang,
06/07/23, pod#4
-ALEX: Pre-op LVEF 60%, post no RWMA and EF 70% (CI 3.5); KAIA; Hyperdynamic, no residual MR & MG 4mmHg
-Post cross clamp, HR 130, CI > 3.5 there was evidence of dynamic KAIA with mild mitral insufficiency
-KAIA disappeared with beta-blockade, amiodarone and volume loading
-Mitral valve endocarditis (Lactobacillus- Treated recently with outpatient 6 wk course of IV Antibiotics
-Severe MR/Degenerative mitral valve disease, type II with flail of P2
-PFO/ASD
-Intraop Tachycardia, KAIA (resolved with BB/IV fluids)
-LVEF 55-60%
-Elevated [id number] score of 4
-NSTEMI
-Anemia
-Hx of electrolyte imbalance (hypokalemia, hypocalcemia, hyponatremia, hypomagnesemia)
-Malnourishment, failure to thrive
-Multiple urinary tract infections
-Depression
-ELVIRA (uses CPAP)
-Asthma
-Osteomyelitis/discitis of the spine
-Sacroiliitis
-Hx Thyroid ca S/P thyroidectomy, XRT, 2010
-Hypothyroidism
-S/p L TKA, 09/2022
-S/p Appendectomy
-S/p
-S/P Abdominoplasty, 1989
-Acute postop blood loss/anemia on chronic anemia (transfused 1u PRBC's on 06/07 and 1 unit on 06/08)
-Acute postop atelectasis/pleural effusion
-Acute postop hypovolemia with subsequent hypervolemia
-Acute postop prolonged QT (QTc 493)
-Acute postop ectopies/bigeminy, started on amiodarone gtt
-Acute postop intermittent junctional rhythm with ventricular bigeminy- holding BB
-Acute postop brief intermittent episodes of mild expressive aphasia - unremarkable head CT 06/09/23
-ECHO 06/08 showed normal LV function, mean gradient 3mm Hg, no MR, pleural effusion present
Discussed patient care with: Nursing and Care Team
Subjective
Procedure
Sternotomy with aortic and bicaval cannulation/Radical mitral valve repair (debridement of mitral valve leaflets, triangular resection of P2 scallop, 28 mm band annuloplasty)/Closure of ASD/PFO/Left atrial appendage exclusion (35 mm) by Dr. Kang,
06/07/23
-
Date of Service: June 11, 2023
Objective Data
-
PT 15.9 Sec (11.4-14.6) H 06/07/23 10:25
INR 1.29 06/07/23 10:25
APTT 29.2 Sec (23.4-35.0) 06/07/23 10:25
Vital Signs
Vital Signs
Temp Pulse Resp BP Pulse Ox
97.9 F 74 16 115/67 95
06/10/23 23:08 06/10/23 23:08 06/10/23 23:08 06/10/23 23:08 06/10/23 23:08
CT Intake/Output/Weight
02/15/24 02/15/24 02/16/24
06:59 18:59 06:59
Intake Total 600 / 1460.9 190 / 200 10 / 200
Output Total 450 / 1225 250 / 250
Balance 150 / 235.9 -60 / -50 10 / -50
SaO2: 95
Physical Exam
-
General: Awake and AOx3
Cardiovascular: Regular rate & rhythm, No Murmurs and No Rub
Respiratory: Rales (at bases b/l, no wheeze)
Sternum: Stable
Incision: Clean, Dry and Dressing Intact
Extremities: Edema +1
Data Reviewed
-
Lab Results: Results Reviewed
Medications: Active Meds Reviewed
Chest X-Ray: Report Reviewed and Image Reviewed
ECG: Report Reviewed and Image Reviewed
--- NOTE | 2023-06-11 07:45 | PTCARENOTE ---
Assumed care of patient. Walking rounds completed with previous RN. Pt assessed while she was sitting in the chair. Pt alert and oriented x4. JAUREGUI with equal strength in all extremities. NIH 0. SR on tele with rates in the 80s. BP stable 111/74.
Heart tones audible. Bilateral radial and DP pulses palpable. +2 lower extremity edema. Epicardial AV wires set to AAI 40/10. POX 93% on RA. Lungs with crackles and diminished in b/l bases. IS encouraged. Abdomen soft, nontender. +BS. Pt reports
small stools. Pt voiding in the toilet irena urine. Sternal incision approximated with skin glue-MODESTO. Old chest tube sites with dressing CDI. Right IJ cordis intact with NSS KVO infusing. Right AC 20g PIV intact. See MAR for medication
administration. See worklist for complete nursing assessment. Plan of care reviewed and patient in agreement.
[2023-06-11] MEDS: VITAMIN C 500 MG PO (07:54)
[2023-06-11] MEDS: MUCINEX 600 MG PO (07:54)
[2023-06-11] MEDS: ProAmatine 5 MG PO ×2 (07:54→15:45)
[2023-06-11] MEDS: MAGNESIUM OXIDE 500 MG PO (07:54)
[2023-06-11] MEDS: LEXAPRO 5 MG PO (07:54)
[2023-06-11] MEDS: LOW STRENGTH ASPIRIN 81 MG PO (07:54)
[2023-06-11] MEDS: NEURONTIN 200 MG PO (07:54)
[2023-06-11] MEDS: PROTONIX 40 MG PO (07:54)
[2023-06-11] MEDS: LIDOCAINE 4% PATCH TOPICAL ×2 (07:54→08:14)
[2023-06-11] MEDS: SENOKOT-S 1 TABLET PO (07:54)
[2023-06-11] MEDS: BACTROBAN 2% OINTMENT 1 APPLIC NASAL (07:55)
[2023-06-11] MEDS: FLUSH (NSS) 1 FLUSH IV (07:55)
[2023-06-11] MEDS: SYMBICORT 160/4.5 MCG INHALER 2 PUFF INH (08:55)
[2023-06-11] MEDS: NON-FORMULARY ITEM 100 MCG INH (08:55)
[2023-06-11] MEDS: NSS IV (09:30)
--- NOTE | 2023-06-11 09:39 | W.PN.CD ---
Today's Communication / Plan
-
continue medical therapy.
monitor BP, off Midodrine.
Impression / Plan
-
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
Primary Plant Hr Manager: Dr. Abraham ([facility])
Impression/Plan:
Mitral regurgitation endocarditis - S/P mitral valve repair by Dr. Kang 06/07/23
-Vegetation to PL and flail S/P P2 resection with band and NGUYEN clip
-Pre-op LVEF 60%, post no RWMA and EF 70% (CI 3.5)
-Hyperdynamic, no residual MR & MG 4mmHg
-ECHO 06/08 showed normal LV function, mean gradient 3mm Hg, no MR, pleural effusion
-Monitor daily weight, with mild volume overload, weight up from admission
Hypotension - improved, off Midodrine.
-continue to monitor
-holding diuretics, CXR this am is stable with small b/l pleural effusions
Junctional rhythm post op - also frequent ventricular ectopy
-Recovered now and has normal AV conduction with sinus rhythm.
-Tolerating Toprol 12.5 mg daily, continue
-Continue Amiodarone 200mg TID
-No indication for PPM now
KAIA - resolved with better HR control, and not present on TTE 06/08/23
-Post cross clamp, HR 130, CI > 3.5 there was evidence of dynamic KAIA with mild mitral insufficiency
S/P Thyroidectomy, hypothyroidism, on levothyroxine
Asthma, chronic
Subjective:
feeling well, denies chest pain or sob
Physical Exam
Vital Signs/Labs
Vital Signs
Temp Pulse Resp BP Pulse Ox
98.6 F 81 16 114/74 93
06/11/23 08:00 06/11/23 08:00 06/11/23 08:00 06/11/23 08:00 06/11/23 08:00
06/10/23 06/11/23 06/12/23
06:59 06:59 06:59
Actual Weight 70.9 kg 71.3 kg
06/11/23 03:30
06/11/23 03:30
PT 15.9 Sec (11.4-14.6) H 06/07/23 10:25
INR 1.29 06/07/23 10:25
APTT 29.2 Sec (23.4-35.0) 06/07/23 10:25
Magnesium 2.1 mg/dl (1.6-2.3) 06/10/23 04:22
05/19/23
12:18
[id number] Pept 476
Physical Exam
Constitutional: No acute distress
EENT: Anicteric and Moist mucous membranes
Cardiovascular: Rhythm & rate is regular
Respiratory: Respiratory effort normal (diminished b/l bases)
GI: Soft and Non tender
Neuro/Psych: AO x 3
Other: Skin (warm, dry)
Data Reviewed
-
Date of Service: June 11, 2023
Medical Decision Making: External Notes and Reviewed Test Results
EKG: Tracing Personally Visualized and interpreted
Echo: Report Reviewed by me
X-Ray/CT/US/MRI/NUC/PET: Report Reviewed by me (CXR today)
Labs: Labs Reviewed by me
Old Records: Reviewed
--- NOTE | 2023-06-11 11:07 | W.DCSUMMARY ---
Discharge Summary
Discharge Data
Date of Admission: 06/07/23
Date of Discharge: 06/11/23
-
Pending Results: No
Hospital Course
Primary care physician:
Dr. Turner
Outpatient bacteriology technician:
Dr. Graham
Inpatient consultants:
[facility] cardiology, executive manager,
Procedures:
1. Radical mitral valve repair (debridement of mitral valve leaflets, triangular resection of P2 scallop, 28 mm band annuloplasty)
Primary Diagnosis:
1. 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
Secondary Diagnoses:
1.� Malnourishment, failure to thrive
2.� Osteomyelitis/discitis of the spine
3.� Sacroiliitis
4.� Multiple urinary tract infections
5.� Hypothyroidism, status post thyroidectomy
6.� Electrolyte disturbance, hypokalemia, hyponatremia, hypocalcemia
7.� Non-st elevation myocardial infarction
8.� Obstructive sleep apnea
9.� Elevated [id number] score of 4
10.� Asthma
HPI: 73-year-old female admitted to the hospital for prolonged period time with endocarditis as well as discitis.� She was discharged home to convalesce and rebuild some reserve.� She was seen in the office multiple times and was making steady
improvement but was still experiencing shortness of breath.� She underwent a repeat transthoracic echocardiogram which demonstrated severe mitral valve insufficiency with a eccentric anterior directed jet that wraps around the left atrium.� Given
her ongoing symptoms she met stage D symptomatology and class I indication for mitral valve intervention.� Due to the history of infection, there was a higher likelihood of replacement.
Hospital course:
73-year-old female was electively admitted on 06/07. She returned from the CV OR to the CVICU on amiodarone, Precedex, and Levophed. When she was coming off bypass there was concerned for Wes and she was tachycardic so she was given Lopressor. She
was given 1 unit of packed red blood cells on the unit and 3 albumins. Patient was extubated by 1600 and was started on oral aspirin. Her CVP continued to be low and was started on lactated Ringer's at 50 mL an hour. On 04/07 postop day 1
amiodarone was continued Levophed was weaned. Repeat echocardiogram showed no MR and no pericardial effusions. She had some postoperative anemia and was given another unit of packed red blood cells. [place] catheter was removed chest tubes
remained in place, and was started on 25% albumins. On 06/09 postop day #2 patient had a questionable neurostatus that NIH exam was [address] head did not show any acute intracranial abnormalities. All narcotics were discontinued and patient was
temporarily restarted on Levophed due to hypotension while in a junctional rhythm and started on midodrine 3 times daily. We continued to hold diuresis and her amiodarone infusion was changed to oral. Chest tubes were discontinued. On 06/10 postop
day #3, patient converted back to sinus rhythm, EP evaluated patient and said no permanent pacemaker was needed. Patient ambulated in the read and neurostatus continue to improve. On 06/11, postop day #4 patient went for a two-view chest x-ray that
was stable. She was started on metoprolol 12.5 at bedtime and midodrine was weaned down to twice a day. Patient was deemed stable for discharge and all prescriptions were sent to her preferred pharmacy.
Home medication changes:
see below
Discharge Plan
-
Patient Disposition: Home (Routine Discharge)
Discharge Diagnosis/Procedures: MV repair
Condition: Good
Diet: Low Cholesterol and 2 Gram Sodium
Activity: No strenuous activity
Driving Restrictions: Not until seen by your Dr
Bathing Restrictions: OK to Shower
Other Services: Cardiac Rehab
Specialty Instructions: Weigh Daily- Call MD for wt gain/loss 3 lbs overnight/5 lbs in 1 week
Activity Restrictions/Additional Instructions:
ACTIVITY:
-No strenuous activity: no heavy lifting, pushing, pulling anything over 15 pounds for one month
-continue to use stairs as tolerated
DRIVING RESTRICTIONS:
-No driving for one month or until approved by your surgeon
WOUND CARE:
-Shower daily. Use soap & water.
-No lotions, creams or powders on incision area.
DIET:
-continue a low fat/low cholesterol diet.
-IF you are diabetic, continue carb controlled diet.
CARDIAC REHAB:
-Please make appointment to start in 5-6 weeks with your local hospital program. (See Cardiac Rehabilitation Discharge Booklet).
SPECIALTY INSTRUCTIONS:
-Weigh yourself daily. Call your physician for any weight gain/loss of 3 lbs overnight or 5 lbs in one week.
-REPORT any clicking noise or uneven appearance of your sternum to your surgeon immediately.
-If you smoke, you are instructed to quit. The [place] smoking hotline phone number is [phone]
Referrals:
CT Transitional Care Nurse [Outside] - in one to two days
(
The Cardiothoracic Transitional Care Nurse will call you to set up a visit in 1-2 days.)
Ross Graham MD [Non-Admitting Privileges] - 07/26/23 11:00 am
Guillaume Turner MD [Family Provider] - in four to six weeks (Please make an appointment in four to six weeks. )
Paras Kang MD [Active] - 07/07/23 1:00 pm
Prescriptions:
New
acetaminophen 325 mg Tablet
650 mg PO Q6HPRN PRN (Reason: mild pain,headache,temp >101F ) Qty: 0 0RF
metoprolol succinate 25 mg Tablet Extended Release 24 Hr
12.5 mg PO DAILY@2000 Qty: 60 1RF
aspirin [Children's Aspirin] 81 mg Tablet,Chewable
81 mg PO DAILY Qty: 0 0RF
midodrine 5 mg Tablet
5 mg PO BID@0800,1600 Qty: 20 0RF
Continued
liothyronine [Cytomel] 5 mcg tablet
10 mcg PO DAILY
levothyroxine [Synthroid] 88 mcg tablet
88 mcg PO DAILY
gabapentin 100 mg capsule
200 mg PO BID
escitalopram oxalate 5 mg tablet
5 mg PO DAILY
budesonide-formoterol [Symbicort] 160-4.5 mcg/actuation HFA aerosol inhaler
2 inh INHALATION R BID
docusate sodium [Colace] 100 mg Capsule
100 mg PO BID
albuterol sulfate [ProAir HFA] 90 mcg/actuation Hfa Aerosol Inhaler
2 puff INHALATION R Q6HPRN PRN (Reason: sob)
ondansetron 4 mg Tablet,Disintegrating
4 mg PO Q6HPRN PRN (Reason: take with tramadol/NAUSSEA)
Arnuity Ellipta 100 mcg/actuation Blister With Device
1 inh INHALATION R DAILY
mirtazapine 7.5 mg Tablet
7.5 mg PO HS Qty: 30 0RF
calcium carbonate [Oyster Shell Calcium 500] 500 mg calcium (1,250 mg) tablet
500 mg PO BID
cholecalciferol (vitamin D3) 50 mcg (2,000 unit) tablet
2,000 unit PO DAILY
Care Plan Goals
Care Plan Goals:
Problem: Readiness for enhanced knowledge related to diagnosis and treatment plan
Goal: Understand your diagnosis and treatment plan needs, including medications if applicable.
Instructions: Know your diagnosis, underlying causes and treatment plan options, including medications if applicable. Consult with your health care team to learn about your diagnosis and treatment plan, including medications if applicable.
[2023-06-11] MEDS: TYLENOL 1000 MG PO (11:37)
--- NOTE | 2023-06-11 12:00 | PTCARENOTE ---
Pt reassessed. Pt resting in the chair. Pt remains neurologically intact. NSR with rates in the 80s. BP stable 107/73. POX 95% on RA. Surgical sites stable. Pt assisted to the bathroom to void, and then assisted to bed. Cordis d/c per orders,
dressing applied. Epicardial AV wires cut with 2 RNs. Pt tolerated. Old CT dressing changed. No other acute changes from previous assessment.
--- NOTE | 2023-06-11 14:08 | CM ---
Reviewed chart. Met with Mrs. Moreno to review discharge plans. She states she she feeling well and maybe able to g home soon. We reviewed a home visit by the Cardiothoracic Transitional Care Nurse. She is agreeable to a home visit. She
states her spouse will be home to assist in her care if needed. He works form home. Also her two adult son reside at home and will be there. Medical work-up in progress. The discharge plan is to return home with her spouse and two adult sons with
a home visit by the Cardiothoracic Transitional Care Nurse when medically stable.
--- NOTE | 2023-06-11 14:30 | PTCARENOTE ---
Pt assisted to the shower. Tolerated. Assisted pt to don street clothes. Resting in the chair waiting for ride to be discharged.
--- NOTE | 2023-06-11 16:45 | PTCARENOTE ---
Discharge order written. Pt's at bedside to review discharge paperwork. All questions answered. PIV and tele removed. Pt stable prior to transport. Home meds returned.
== END 2023-06-11 16:56 | disposition home or self-care (01) | DRG 219 ==
LOC: CVICU 05:09
PROVIDERS: Anesthesiology; Clinical Nurse Specialist Acute Care; Physician Assistant Medical; Physician Assistant Surgical; ADMITTING PHYSICIAN Thoracic Surgery (Cardiothoracic Vascular Surgery); CONSULT PHYSICIAN Internal Medicine Critical Care Medicine; FAMILY PHYSICIAN Internal Medicine
PROC: 02L70CK Occlusion of Left Atrial Appendage with Extraluminal Device, Open Approach (ICD-10-PCS; 2023-06-07)
PROC: 5A1221Z Performance of Cardiac Output, Continuous (ICD-10-PCS; 2023-06-07)
PROC: 02B Heart and Great Vessels, Excision (ICD-10-PCS; 2023-06-07)
PROC: 30233N1 Transfusion of Nonautologous Red Blood Cells into Peripheral Vein, Percutaneous Approach (ICD-10-PCS; 2023-06-07)
PROC: 02UG0JZ Supplement Mitral Valve with Synthetic Substitute, Open Approach (ICD-10-PCS; 2023-06-07)
PROC: B24BZZ4 Ultrasonography of Heart with Aorta, Transesophageal (ICD-10-PCS; 2023-06-07)
PROC: 02Q50ZZ Repair Atrial Septum, Open Approach (ICD-10-PCS; 2023-06-07)
DX: I34.0 Nonrheumatic mitral (valve) insufficiency (principal); I33.0 Acute and subacute infective endocarditis; I51.1 Rupture of chordae tendineae, not elsewhere classified; E46 Unspecified protein-calorie malnutrition; Q21.12 Patent foramen ovale; E87.1 Hypo-osmolality and hyponatremia; D62 Acute posthemorrhagic anemia; M86.9 Osteomyelitis, unspecified; J98.11 Atelectasis; J90 Pleural effusion, not elsewhere classified; R47.01 Aphasia; R62.7 Adult failure to thrive; E89.0 Postprocedural hypothyroidism; E86.1 Hypovolemia; E87.70 Fluid overload, unspecified; R94.31 Abnormal electrocardiogram [ECG] [EKG]; R00.8 Other abnormalities of heart beat; I95.9 Hypotension, unspecified; R00.0 Tachycardia, unspecified; R73.9 Hyperglycemia, unspecified; I49.3 Ventricular premature depolarization; E83.51 Hypocalcemia; E87.6 Hypokalemia; Z68.27 Body mass index [BMI] 27.0-27.9, adult; G47.33 Obstructive sleep apnea (adult) (pediatric); J45.909 Unspecified asthma, uncomplicated; M46.1 Sacroiliitis, not elsewhere classified; F32.A Depression, unspecified; M46.40 Discitis, unspecified, site unspecified; Z87.440 Personal history of urinary (tract) infections; I25.2 Old myocardial infarction; Z85.850 Personal history of malignant neoplasm of thyroid; Z91.199 Patient's noncompliance with other medical treatment and regimen due to unspecified reason
CPT/HCPCS: 88305; 36415; 70450; 71045; 71046; 80048; 80053; 81003; 82248; 82330; 82565; 82805; 82947; 82962; 83036; 83735; 83880; 84132; 84302; 84520; 85014; 85018; 85025; 85027; 85049; 85610; 85730; 86850; 86900; 86901; 86920; 87040; 87070; 87176; 87205; 93005; 93306; 93312; 93320; 93325; 93880; 94002; 94640; J2916; P9016; P9045; P9047

== ENCOUNTER 2023-08-23 13:39 | Outpatient (RCR) | payer MEDICARE, OTHER, SELFPAY | END 2023-08-23 23:59 | disposition home or self-care (01) | LOC: CRHB 13:39 | PROVIDERS: ATTENDING PHYSICIAN Internal Medicine Cardiovascular Disease; FAMILY PHYSICIAN Internal Medicine | DX: I34.0 Nonrheumatic mitral (valve) insufficiency (principal); I33.0 Acute and subacute infective endocarditis; Z95.4 Presence of other heart-valve replacement | CPT/HCPCS: G0422; G0423 ==

== ENCOUNTER 2023-09-17 13:22 | Outpatient (RCR) | payer MEDICARE, OTHER, SELFPAY | END 2023-09-17 23:59 | disposition home or self-care (01) | LOC: CRHB 13:22 | PROVIDERS: ATTENDING PHYSICIAN Internal Medicine Cardiovascular Disease; FAMILY PHYSICIAN Internal Medicine | DX: I34.0 Nonrheumatic mitral (valve) insufficiency (principal); Z95.4 Presence of other heart-valve replacement | CPT/HCPCS: G0422; G0423 ==

== ENCOUNTER 2023-10-06 13:12 | Outpatient (RCR) | payer MEDICARE, OTHER, SELFPAY | END 2023-10-06 23:59 | disposition home or self-care (01) | LOC: CRHB 13:12 | PROVIDERS: ATTENDING PHYSICIAN Internal Medicine Cardiovascular Disease; FAMILY PHYSICIAN Internal Medicine | DX: Z95.4 Presence of other heart-valve replacement (principal) | CPT/HCPCS: G0422; G0423 ==

== ENCOUNTER 2023-11-22 13:13 | Outpatient (RCR) | payer MEDICARE, OTHER, SELFPAY | END 2023-11-22 23:59 | disposition home or self-care (01) | LOC: CRHB 13:13 | PROVIDERS: ATTENDING PHYSICIAN Internal Medicine Cardiovascular Disease; FAMILY PHYSICIAN Internal Medicine | DX: Z95.4 Presence of other heart-valve replacement (principal) | CPT/HCPCS: G0422; G0423 ==

== ENCOUNTER → 2024-01-10 09:23 | Outpatient (REF) | payer MEDICARE, OTHER, SELFPAY | LOC: RCS 09:23 | PROVIDERS: ATTENDING PHYSICIAN Thoracic Surgery (Cardiothoracic Vascular Surgery); FAMILY PHYSICIAN Internal Medicine | DX: Z98.890 Other specified postprocedural states (principal) | CPT/HCPCS: 93306 ==

== ENCOUNTER → 2025-02-02 10:21 | Outpatient (REF) | payer MEDICARE, OTHER, SELFPAY | LOC: RCS 10:21 | PROVIDERS: ATTENDING PHYSICIAN Thoracic Surgery (Cardiothoracic Vascular Surgery); FAMILY PHYSICIAN Internal Medicine | DX: Z98.890 Other specified postprocedural states (principal) | CPT/HCPCS: 93306 ==

== ENCOUNTER → 2025-02-08 14:09 | Outpatient (REF) | payer MEDICARE, OTHER, SELFPAY | LOC: HWRAD 14:09 | PROVIDERS: ATTENDING PHYSICIAN Internal Medicine; FAMILY PHYSICIAN Internal Medicine | DX: J98.4 Other disorders of lung (principal) | CPT/HCPCS: 71250 ==

== ENCOUNTER 2025-02-21 08:49 | Inpatient (IN) | payer MEDICARE, OTHER, SELFPAY ==
--- NOTE | 2025-01-31 12:04 | CM ---
CM reviewed medical records. CONCHITA spoke with patient and she was currently at outpatient PT. She will call this CM back once she is available.
--- NOTE | 2025-01-31 13:56 | CM ---
Demographics:confirmed
Living situation: with and son, three story, first floor bedroom.
Support Person Post Operatively: and son
History of
VN: Jose F.
SNF: No
Outpatient: [facility] at home and then transition to outpatient
Has patient purchased required equipment: yes
PCP: Yue
Pharmacy: [facility]
Post Operative Discharge Plan: [facility] and then transition to outpatient.
[2025-02-06 13:58] VITALS: BMI 32.7
[2025-02-06 14:30] LABS: Hematocrit 42.4 % (37.0-47.0); Hemoglobin 14.1 g/dL (12.0-16.0); Mean Corp Hgb Conc. 33.3 g/dL (33.0-37.0); Mean Corpuscular Volume 94.4 fL (81.0-99.0); Platelet Count 195 10^3/uL (130-400); Red Cell Dist. Width 13.3 % (11.5-14.5)
[2025-02-06 14:44] VITALS: BMI 32.7
[2025-02-06 15:05] LABS: ALT (SGPT) 24 U/L (0-35); AST (SGOT) 26 U/L (14-36); Albumin 4.1 g/dl (3.5-5.0); Alkaline Phosphatase 55 U/L (38-126); Blood Urea Nitrogen 25 mg/dl (7-17); Calcium 8.9 mg/dl (8.4-10.2); Carbon Dioxide 28 mmol/L (22-30); Chloride 105 mmol/L (98-107); Estimated Creatinine Clearance 79 ml/min; Glucose 100 mg/dl (70-99); Potassium 3.7 mmol/L (3.5-5.1); Sodium 139 mmol/L (135-145); Total Protein 6.5 g/dl (6.3-8.2); eGFR > 60.00
[2025-02-07 08:32] LABS: Glycohemoglobin (HgbA1c) 5.9 % (4.0-5.6)
[2025-02-21] VITALS (21 sets, daily range): BP systolic 88–174; BP diastolic 58–98; PULSE 79; O2SAT 93; BMI 32.7
[2025-02-21] MEDS: TYLENOL 650 MG PO ×4 (09:32→23:48)
[2025-02-21] MEDS: CELEBREX 200 MG PO (09:32)
[2025-02-21] MEDS: NORMOSOL-R/PLASMALYTE-A 1000 IV ×2 (09:55→15:35)
--- NOTE | 2025-02-21 12:31 | W.PN.UPDATE ---
Update Note
Progress Note Update
R hip OA s/p R FREEDOM w/ Dr Barraza 02/21/25
DVT prophylaxis - ASA, b/l venous foot pumps
HTN - + parameters - monitor BP
Lactobacillus mitral valve endocarditis, status post mitral valve repair, 04/2023, and IV Ampicillin course
L5 osteomyelitis/spondylodiscitis, treated with IV Ampicillin
- IV Ancef should cover for Lactobacillus liam-op
- Initially prescribed Cefadroxil for joint prophylaxis upon d/c. Will consider switching to Clindamycin
Asthma, severe and persistent
Restrictive lung disease
Obstructive sleep apnea, inconsistent with CPAP (setting 4)
Chronic dyspnea on exertion
Chronic cough, multifactorial
- Monitor O2
- IS
- Resume home inhalers
- Duoneb prn
- Prednisone taper w/ transition back to home Prednisone dosing upon d/c
- Resume CPAP HS
Steroid dependence - Prednisone as stated above
- Would benefit from a prophylactic abx upon d/c
HLD
Coronary artery calcifications per chest CT 02/08/2025
Abdominal aortic atherosclerosis
History of NSTEMI
Left lower extremity lymphedema
Venous varicosities
Colon polyps
Diverticulitis history per records
Nephrolithiasis
Angiomyolipoma of kidney, checked serially
Multiple abdominal hernias, reducible and non-bothersome
Essential tremor
Tension headaches
Thyroid cancer, 2010, status post thyroidectomy and radiation
Post-surgical hypothyroidism
History of recurrent UTIs
Anxiety
Depression
Osteopenia
Insomnia
Prediabetes, A1c 5.9
Obesity, BMI 32.7
--- NOTE | 2025-02-21 13:47 | SUR.PHASEI ---
Rec'd sleepy in bed with HOB elevated low fowlers, oriented x 3 by RN reassured, denies at present
--- NOTE | 2025-02-21 13:49 | SUR.PHASEI ---
Lightly dozing xray in
--- NOTE | 2025-02-21 15:45 | PTCARENOTE ---
Pt arrived to [facility] s/p R FREEDOM. Pt drowsy but arousable to verbal. Right hip dressing with scant sanguineous drainage. 99% on 2L. Thigh high teds/foot pumps on pt. Admission questions answered. Bed locked and in lowest position. Call martinez within
each. Care ongoing.
[2025-02-21 15:56] LABS: Glucose - Point of Care 142 mg/dl (70-99)
[2025-02-21 16:20] LABS: Hematocrit 36.5 % (37.0-47.0); Hemoglobin 12.4 g/dL (12.0-16.0); Mean Corp Hgb Conc. 34.0 g/dL (33.0-37.0); Mean Corpuscular Volume 90.3 fL (81.0-99.0); Platelet Count 208 10^3/uL (130-400); Red Cell Dist. Width 13.5 % (11.5-14.5)
--- NOTE | 2025-02-21 16:20 | RR ---
A Rapid Response was called on this patient, please see Rapid Response form.
[2025-02-21 16:32] LABS: Blood Urea Nitrogen 16 mg/dl (7-17); Calcium 8.4 mg/dl (8.4-10.2); Carbon Dioxide 25 mmol/L (22-30); Chloride 105 mmol/L (98-107); Estimated Creatinine Clearance 78 ml/min; Glucose 130 mg/dl (70-99); Potassium 3.7 mmol/L (3.5-5.1); Sodium 136 mmol/L (135-145); eGFR > 60.00
[2025-02-21] MEDS: NEURONTIN 200 MG PO ×2 (16:51→22:36)
[2025-02-21] MEDS: CRESTOR 10 MG PO (16:51)
[2025-02-21] MEDS: SYNTHROID 75 MCG PO (16:51)
[2025-02-21] MEDS: CYTOMEL 10 MICROGRAM PO (16:52)
[2025-02-21] MEDS: LEXAPRO 10 MG PO (16:52)
[2025-02-21] MEDS: VITAMIN D3 (cholecalciferol) 125 MCG PO (16:52)
[2025-02-21] MEDS: PROTONIX 40 MG PO (16:52)
[2025-02-21] MEDS: DELTASONE 40 MG PO (16:52)
[2025-02-21] MEDS: FLORASTOR 250 MG PO ×2 (16:53→19:59)
[2025-02-21] MEDS: ZYRTEC 10 MG PO (18:06)
[2025-02-21] MEDS: ASPIRIN 325 MG PO (18:06)
[2025-02-21] MEDS: SYMBICORT 160/4.5 MCG INHALER 2 PUFF INH (19:26)
[2025-02-21] MEDS: ANCEF 5 IV (19:56)
[2025-02-21] MEDS: SENOKOT 17.2 MG PO (19:57)
[2025-02-21] MEDS: COLACE 100 MG PO (19:57)
[2025-02-21] MEDS: BACTROBAN 2% OINTMENT 1 APPLIC NASAL (19:57)
[2025-02-21] MEDS: MYLICON 240 MG PO (19:58)
[2025-02-21] MEDS: REMERON 7.5 MG PO (22:36)
[2025-02-21] MEDS: MELATONIN 5 MG PO (22:36)
[2025-02-22] VITALS (9 sets, daily range): BP systolic 102–130; BP diastolic 64–83; PULSE 78–86; O2SAT 96
[2025-02-22] MEDS: ANCEF 5 IV (03:38)
[2025-02-22] MEDS: TYLENOL 650 MG PO ×5 (03:38→20:23)
[2025-02-22] MEDS: ULTRAM 50 MG PO (05:12)
[2025-02-22] MEDS: CYTOMEL 10 MICROGRAM PO (05:43)
[2025-02-22] MEDS: SYNTHROID 75 MCG PO (05:43)
[2025-02-22] MEDS: SYMBICORT 160/4.5 MCG INHALER 2 PUFF INH ×2 (07:48→20:13)
[2025-02-22] MEDS: PROTONIX 40 MG PO (08:29)
[2025-02-22] MEDS: NEURONTIN 200 MG PO ×2 (08:29→20:24)
[2025-02-22] MEDS: LEXAPRO 10 MG PO (08:29)
[2025-02-22] MEDS: SENOKOT 17.2 MG PO ×2 (08:29→20:25)
[2025-02-22] MEDS: ASPIRIN 325 MG PO (08:29)
[2025-02-22] MEDS: COLACE 100 MG PO ×2 (08:29→20:24)
[2025-02-22] MEDS: MYLICON 240 MG PO ×2 (08:29→20:28)
[2025-02-22] MEDS: CRESTOR 10 MG PO (08:29)
[2025-02-22] MEDS: VITAMIN D3 (cholecalciferol) 125 MCG PO (08:30)
[2025-02-22] MEDS: DELTASONE 40 MG PO (08:30)
[2025-02-22] MEDS: BACTROBAN 2% OINTMENT 1 APPLIC NASAL ×2 (08:31→20:22)
[2025-02-22] MEDS: TOPROL XL 25 MG PO (08:31)
[2025-02-22] MEDS: FLORASTOR 250 MG PO ×2 (08:31→20:23)
--- NOTE | 2025-02-22 09:48 | PTCARENOTE ---
Pt starting to feel dizzy while sitting in chair. Ortho PA, Alyssa, and tech assited pt back to bed. BP 102/64 HR 76. Meclizine ordered. Care ongoing.
--- NOTE | 2025-02-22 09:59 | W.PN.ORTHO ---
Today's Communication / Plan
-
Monitor dizziness after interventions noted.
Work w/ PT and OT as able.
D/c when clinically stable. If notably improved, could be later today.
Assessment
.
Distal Motor Intact: Yes
Dressing:
Small dime sized area of incisional bleeding noted towards distal end of dressing.
Assessment:
R hip OA s/p R FREEDOM w/ Dr Barraza 02/21/25
DVT prophylaxis - ASA, b/l venous foot pumps
Dizziness POD 1 - pt has a h/o vasovagal syncope and is sensitive to anesthesia per in past - she is neurologically intact
- Will give 1x dose of Meclizine in event dizziness is vertigo related
- Minimize opioids. Will add Lidocaine patches, 1x dose of IV Toradol to try and accommodate this
- Decrease Gabapentin dosing. Was on 900 mg previously, however, w/o issue
- Consider fluid bolus. Pt was on IVF overnight. Encourage oral hydration
- Had an event yesterday where RR was called. Similar presentation. Of note, labs/EKG yesterday stable
HTN - + parameters - BPs stable overall
Lactobacillus mitral valve endocarditis, status post mitral valve repair, 04/2023, and IV Ampicillin course
L5 osteomyelitis/spondylodiscitis, treated with IV Ampicillin
- IV Ancef should cover for Lactobacillus liam-op
- Initially prescribed Cefadroxil for joint prophylaxis upon d/c. After discussing with pt, will be switching to Clindamycin
Asthma, severe and persistent
Restrictive lung disease
Obstructive sleep apnea, inconsistent with CPAP (setting 4)
Chronic dyspnea on exertion
Chronic cough, multifactorial
- O2 stable on RA w/ measures below
- IS
- Resume home inhalers
- Duoneb prn
- Prednisone taper w/ transition back to home Prednisone dosing upon d/c
- Resume CPAP HS
Steroid dependence - Prednisone as stated above
- Would benefit from a prophylactic abx upon d/c
HLD
Coronary artery calcifications per chest CT 02/08/2025
Abdominal aortic atherosclerosis
History of NSTEMI
Left lower extremity lymphedema
Venous varicosities
Colon polyps
Diverticulitis history per records
Nephrolithiasis
Angiomyolipoma of kidney, checked serially
Multiple abdominal hernias, reducible and non-bothersome
Essential tremor
Tension headaches
Thyroid cancer, 2010, status post thyroidectomy and radiation
Post-surgical hypothyroidism
History of recurrent UTIs
Anxiety
Depression
Osteopenia
Insomnia
Prediabetes, A1c 5.9
Obesity, BMI 32.7
Plan
.
Surgery / Date: R FREEDOM w/ Dr Barraza 02/21/25
DVT Prophylaxis: Aspirin
Activity:
Out of bed.
PT/OT
Discharge Plan: Home w/ VN
Subjective
.
.:
Patient examined resting in her chair.
R hip pain currently well controlled.
Dizziness reported - pt was assisted back to bed. Prone to vasovagal episodes per report (see event yesterday).
Vital Signs and Labs
.
Vital Signs and Labs:
Lab Results
02/21/25 16:10
02/21/25 16:10
Temp Pulse Resp BP Pulse Ox
97.9 F 86 18 129/72 95
02/22/25 08:39 02/22/25 08:39 02/22/25 08:39 02/22/25 08:39 02/22/25 08:39
Non-invasive Hgb result: 12.5
Physical Exam
-
HEENT: No pallor, cyanosis, or jaundice. Throat clear.
NECK: Supple. No JVD.
RESPIRATORY: Lungs clear to auscultation.
CVS: S1, S2 normal. RRR.�
ABDOMEN: Soft, non-tender. No distension. Obese.
EXTREMITIES: Strength equal, no calf pain with palpation/dorsiflexion. Calves soft.
CARE PROCESS MANAGER: AOx3. No focal deficits. microsoft dynamics ax developer grossly intact
[2025-02-22] MEDS: TORADOL 15 MG IV (10:03)
[2025-02-22] MEDS: ANTIVERT 12.5 MG PO (10:03)
[2025-02-22] MEDS: LIDOCAINE 4% PATCH 2 PATCH TOPICAL (10:04)
--- NOTE | 2025-02-22 14:56 | W.PN.UPDATE ---
Update Note
Progress Note Update
Pt to stay an additional night to reinforce hip precautions and ensure medical stability.
Plan to see tomorrow and hopefully d/c then.
[2025-02-22] MEDS: ZYRTEC 10 MG PO (17:21)
[2025-02-22] MEDS: MELATONIN 5 MG PO (20:24)
[2025-02-22] MEDS: REMERON 7.5 MG PO (20:24)
[2025-02-22] MEDS: REMOVE LIDOCAINE PATCH 1 PATCH REMOVE (20:25)
[2025-02-23] MEDS: TYLENOL PO (01:18)
[2025-02-23 03:06] VITALS: BP 135/72
[2025-02-23] MEDS: TYLENOL 650 MG PO ×3 (03:12→11:50)
[2025-02-23] MEDS: CYTOMEL 10 MICROGRAM PO (05:04)
[2025-02-23] MEDS: SYNTHROID 75 MCG PO ×2 (05:04)
[2025-02-23 07:00] VITALS: BP 147/78
[2025-02-23] MEDS: SYMBICORT 160/4.5 MCG INHALER 2 PUFF INH (07:17)
--- NOTE | 2025-02-23 08:19 | W.PN.ORTHO ---
Today's Communication / Plan
-
Await PT and OT recs.
D/c later today if remaining clinically stable.
Assessment
.
Distal Motor Intact: Yes
Dressing:
Small dime sized area of incisional bleeding noted towards distal end of dressing.
Assessment:
R hip OA s/p R FREEDOM w/ Dr Barraza 02/21/25
DVT prophylaxis - ASA, b/l venous foot pumps
Dizziness POD 1 - pt has a h/o vasovagal syncope and is sensitive to anesthesia per in past - she is neurologically intact
- S/p 1x dose of Meclizine in event dizziness is vertigo related
- Minimize opioids. Did add Lidocaine patches, 1x dose of IV Toradol to try and accommodate this
- Decreased Gabapentin dosing. Was on 900 mg previously, however, w/o issue
- Consider fluid bolus. Pt was on IVF post-surgery. Encourage oral hydration
- Had an event POD 0 where RR was called. Similar presentation. Of note, labs/EKG stable
- Dizziness resolved by POD 2
HTN - + parameters - BPs stable overall
Lactobacillus mitral valve endocarditis, status post mitral valve repair, 04/2023, and IV Ampicillin course
L5 osteomyelitis/spondylodiscitis, treated with IV Ampicillin
- IV Ancef should cover for Lactobacillus liam-op
- Initially prescribed Cefadroxil for joint prophylaxis upon d/c. After discussing with pt, switched to Clindamycin
Asthma, severe and persistent
Restrictive lung disease
Obstructive sleep apnea, inconsistent with CPAP (setting 4)
Chronic dyspnea on exertion
Chronic cough, multifactorial
- O2 stable on RA w/ measures below
- IS
- Resume home inhalers
- Duoneb prn
- Prednisone taper w/ transition back to home Prednisone dosing upon d/c
- Resume CPAP HS
Steroid dependence - Prednisone as stated above
- Would benefit from a prophylactic abx upon d/c
HLD
Coronary artery calcifications per chest CT 02/08/2025
Abdominal aortic atherosclerosis
History of NSTEMI
Left lower extremity lymphedema
Venous varicosities
Colon polyps
Diverticulitis history per records
Nephrolithiasis
Angiomyolipoma of kidney, checked serially
Multiple abdominal hernias, reducible and non-bothersome
Essential tremor
Tension headaches
Thyroid cancer, 2010, status post thyroidectomy and radiation
Post-surgical hypothyroidism
History of recurrent UTIs
Anxiety
Depression
Osteopenia
Insomnia
Prediabetes, A1c 5.9
Obesity, BMI 32.7
Plan
.
Surgery / Date: R FREEDOM w/ Dr Barraza 02/21/25
DVT Prophylaxis: Aspirin
Activity:
Out of bed.
PT/OT
Discharge Plan: Home w/ VN
Subjective
.
.:
Patient resting comfortably in bed this AM.
R hip pain overall controlled w/ minimal Tramadol.
Denies any new significant complaints.
Dizziness from yesterday resolved and no further vasovagal episodes.
Eager for potential d/c today.
Vital Signs and Labs
.
Vital Signs and Labs:
Lab Results
02/21/25 16:10
02/21/25 16:10
Temp Pulse Resp BP Pulse Ox
98.0 F 76 16 147/78 93
02/23/25 07:00 02/23/25 07:21 02/23/25 07:21 02/23/25 07:00 02/23/25 07:00
Non-invasive Hgb result: 11.0
Physical Exam
-
HEENT: No pallor, cyanosis, or jaundice. Throat clear.
NECK: Supple. No JVD.
RESPIRATORY: Lungs clear to auscultation.
CVS: S1, S2 normal. RRR.�
ABDOMEN: Soft, non-tender. No distension. Obese.
EXTREMITIES: Mild post-surgical R hip swelling - expected. Strength equal, no calf pain with palpation/dorsiflexion. Calves soft.
INSTRUMENT ENGINEER: AOx3. No focal deficits. diamond saw operator grossly intact
[2025-02-23] MEDS: CRESTOR 10 MG PO (08:22)
[2025-02-23] MEDS: TOPROL XL 25 MG PO (08:22)
[2025-02-23] MEDS: LEXAPRO 10 MG PO (08:23)
[2025-02-23] MEDS: DELTASONE 30 MG PO (08:23)
[2025-02-23] MEDS: VITAMIN D3 (cholecalciferol) 125 MCG PO (08:23)
[2025-02-23] MEDS: ASPIRIN 325 MG PO (08:23)
[2025-02-23] MEDS: SENOKOT 17.2 MG PO (08:23)
[2025-02-23] MEDS: MYLICON 240 MG PO (08:23)
[2025-02-23] MEDS: PROTONIX 40 MG PO (08:24)
[2025-02-23] MEDS: COLACE 100 MG PO (08:24)
[2025-02-23] MEDS: NEURONTIN 200 MG PO (08:24)
[2025-02-23] MEDS: LIDOCAINE 4% PATCH 2 PATCH TOPICAL (08:25)
[2025-02-23] MEDS: FLORASTOR 250 MG PO (08:25)
--- NOTE | 2025-02-23 08:26 | W.DS.TRANS ---
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
-
Discharge Instructions:
Discharge Diagnosis/Procedures R hip OA s/p R FREEDOM w/ Dr Barraza 02/21/2025
Diet Other diet
Additional Diets Diabetic carb controlled x1 week for wound
healing/infection prevention.
Adequate hydration, minimize opioids, and wear
TEDs stockings to prevent low blood pressure/
dizziness.
Activity As tolerated,With Walker
Driving Restrictions Not until seen by your Dr
Bathing Restrictions OK to Shower
Other Services PT,VN
Wound Care Dressing to be removed 1 week post-surgery.
Instructions:
Stand-Alone Forms: Total Hip/Knee Replacement D/C
Changes to Home Medications: Yes
Discharge Medications:
DC Medications w/original date entered in [facility]
mirtazapine 7.5 mg tablet 7.5 mg PO HS #30 tabs 04/04/23
Arthro Max Advanced 1 tab PO DAILY Supplement 02/01/25
Held on 02/22/25. Instructions: Resume on 02/28/25.
albuterol sulfate 90 mcg/actuation aerosol inhaler (Ventolin HFA) 2 puff inhalation 6XD PRN asthma 02/01/25
budesonide-formoterol HFA 160 mcg-4.5 mcg/actuation aerosol inhaler (Symbicort) 2 puff inhalation BID Lung/Breathing Issues 02/01/25
cetirizine 10 mg tablet (Zyrtec) 10 mg PO QPM Allergies 02/01/25
chlorpheniramine maleate 4 mg tablet 4 mg PO QPM Allergies 02/01/25
cholecalciferol (vitamin D3) 125 mcg (5,000 unit) tablet (Vitamin D3) 125 mcg PO DAILY Supplement 02/01/25
cranberry 500 mg capsule 500 mg PO BID 02/01/25
escitalopram oxalate 10 mg tablet 10 mg PO DAILY Depression 02/01/25
fluticasone furoate 200 mcg/actuation blister powder for inhalation (Arnuity Ellipta) 1 inh inhalation DAILY Lung/Breathing Issues 02/01/25
ipratropium bromide 42 mcg (0.06 %) nasal spray 2 spray intranasal TID Allergies 02/01/25
krill oil 1,200 mg PO DAILY Supplement 02/01/25
Held on 02/22/25. Instructions: Resume on 02/28/25.
liothyronine 5 mcg tablet (Cytomel) 10 mcg PO DAILY Thyroid 02/01/25
melatonin 5 mg tablet 5 mg PO HS Sleep 02/01/25
metoprolol succinate 25 mg tablet,extended release 24 hr 25 mg PO DAILY Blood pressure 02/01/25
prednisone 10 mg tablet 15 mg PO Q48H Anti-Inflammatory 02/01/25
Held on 02/22/25. Instructions: Resume on 03/03/25. DO NOT resume until off Prednisone taper entirely
rosuvastatin 10 mg tablet 10 mg PO DAILY High Cholesterol 02/01/25
simethicone 250 mg capsule 250 mg PO BID Gastrointestinal Issue 02/01/25
vit C 250 mg-vit E 90 mg-zinc 40 mg-copper 1 cm-[id number]-oaiwwh capsule (PreserVision AREDS-2) 1 tab PO DAILY Supplement 02/01/25
calcium carb-ergocalciferol (vit D2) 600 mg calcium-200 unit tablet 2 tab PO DAILY Supplement 02/06/25
levothyroxine 75 mcg tablet (Synthroid) 75 mcg PO DAILY Thyroid 02/06/25
mupirocin 2 % topical ointment 1 applic intranasal BID #1 tube 02/06/25
psyllium husk 3.4 gram/5.4 gram oral powder (Metamucil) 1 tbsp PO HS Constipation 02/06/25
pantoprazole 40 mg tablet,delayed release (Protonix) 40 mg PO DAILY #30 tabs 02/09/25
prednisone 10 mg tablet 40 mg (4 x 10 mg) PO TAPER #20 tabs 02/09/25
prochlorperazine maleate 5 mg tablet (Compazine) 5 mg PO TID PRN nausea and vomiting #30 tabs 02/09/25
tramadol 50 mg tablet 50 - 100 mg (1 - 2 x 50 mg) PO Q6H PRN moderate-severe pain #30 tabs 02/09/25
acetaminophen 500 mg tablet 1,000 mg (2 x 500 mg) PO Q6H pain #1 tab 02/22/25
albuterol sulfate 2.5 mg/3 mL (0.083 %) solution for nebulization 2.5 mg (3 mL) inhalation Q6HPRN PRN shortness of breath #0 mL 02/22/25
amoxicillin 500 mg capsule 500 mg PO ONCE prophylaxis #0 caps 02/22/25
aspirin 325 mg tablet 325 mg PO DAILY #30 tabs 02/22/25
clindamycin HCl 300 mg capsule (Cleocin HCl) 300 mg PO Q6H infection prevention #28 caps 02/22/25
docusate sodium 100 mg capsule 100 mg PO BID #30 caps 02/22/25
gabapentin 100 mg capsule 200 mg (2 x 100 mg) PO BID #30 caps 02/22/25
guaifenesin 600 mg tablet, extended release 12 hr 600 mg PO [id number] PRN mucus #30 tabs 02/22/25
lidocaine 4 % topical patch 2 patch topical DAILY #30 ea 02/22/25
sennosides 8.6 mg tablet (Hermila-les) 17.2 mg (2 x 8.6 mg) PO BID #30 tabs 02/22/25
Saccharomyces boulardii 250 mg capsule (Florastor) 250 mg PO BID #14 caps 02/23/25
Home Medication Changes
pantoprazole 40 mg tablet,delayed release (Protonix) 40 mg PO DAILY #30 tabs 02/09/25
prednisone 10 mg tablet 40 mg (4 x 10 mg) PO TAPER #20 tabs 02/09/25
prochlorperazine maleate 5 mg tablet (Compazine) 5 mg PO TID PRN nausea and vomiting #30 tabs 02/09/25
tramadol 50 mg tablet 50 - 100 mg (1 - 2 x 50 mg) PO Q6H PRN moderate-severe pain #30 tabs 02/09/25
acetaminophen 500 mg tablet 1,000 mg (2 x 500 mg) PO Q6H pain #1 tab 02/22/25
aspirin 325 mg tablet 325 mg PO DAILY #30 tabs 02/22/25
clindamycin HCl 300 mg capsule (Cleocin HCl) 300 mg PO Q6H infection prevention #28 caps 02/22/25
docusate sodium 100 mg capsule 100 mg PO BID #30 caps 02/22/25
gabapentin 100 mg capsule 200 mg (2 x 100 mg) PO BID #30 caps 02/22/25
lidocaine 4 % topical patch 2 patch topical DAILY #30 ea 02/22/25
sennosides 8.6 mg tablet (Hermila-les) 17.2 mg (2 x 8.6 mg) PO BID #30 tabs 02/22/25
Saccharomyces boulardii 250 mg capsule (Florastor) 250 mg PO BID #14 caps 02/23/25
Pending Results: No
[2025-02-23] MEDS: ULTRAM 50 MG PO (08:38)
[2025-02-23] MEDS: COMPAZINE 5 MG PO (08:39)
--- NOTE | 2025-02-23 08:58 | CM ---
Patient is medically ready for discharge. Patient to follow up with [facility] for home PT.
PLAN: Home with outpatient PT.
[2025-02-23 10:11] VITALS: BP 105/62; PULSE 85; O2SAT 94
[2025-02-23 11:00] VITALS: BP 112/67
[2025-02-23 11:22] VITALS: BP 112/67; PULSE 87; O2SAT 92
== END 2025-02-23 12:43 | disposition home or self-care (01) | DRG 470 ==
LOC: 2 SOUTH 08:49
PROVIDERS: ADMITTING PHYSICIAN Orthopaedic Surgery; FAMILY PHYSICIAN Internal Medicine; REFERRING PHYSICIAN Internal Medicine Cardiovascular Disease
PROC: 0SR903A Replacement of Right Hip Joint with Ceramic Synthetic Substitute, Uncemented, Open Approach (ICD-10-PCS; 2025-02-21)
DX: M16.11 Unilateral primary osteoarthritis, right hip (principal); M46.26 Osteomyelitis of vertebra, lumbar region; I10 Essential (primary) hypertension; E78.5 Hyperlipidemia, unspecified; I25.10 Atherosclerotic heart disease of native coronary artery without angina pectoris; I70.0 Atherosclerosis of aorta; I89.0 Lymphedema, not elsewhere classified; J45.50 Severe persistent asthma, uncomplicated; J98.4 Other disorders of lung; G47.33 Obstructive sleep apnea (adult) (pediatric); D17.71 Benign lipomatous neoplasm of kidney; G25.0 Essential tremor; G44.209 Tension-type headache, unspecified, not intractable; E89.0 Postprocedural hypothyroidism; F41.9 Anxiety disorder, unspecified; F32.A Depression, unspecified; M85.80 Other specified disorders of bone density and structure, unspecified site; G47.00 Insomnia, unspecified; R73.03 Prediabetes; E66.9 Obesity, unspecified; R05.3 Chronic cough; R42 Dizziness and giddiness; Z96.652 Presence of left artificial knee joint; I25.2 Old myocardial infarction; Z68.32 Body mass index [BMI] 32.0-32.9, adult; Z86.79 Personal history of other diseases of the circulatory system; Z86.19 Personal history of other infectious and parasitic diseases; Z79.82 Long term (current) use of aspirin; Z91.199 Patient's noncompliance with other medical treatment and regimen due to unspecified reason; Z86.0100 Personal history of colon polyps, unspecified; Z87.19 Personal history of other diseases of the digestive system; Z87.442 Personal history of urinary calculi; Z85.850 Personal history of malignant neoplasm of thyroid; Z92.3 Personal history of irradiation; Z87.440 Personal history of urinary (tract) infections; Z79.52 Long term (current) use of systemic steroids; Z79.890 Hormone replacement therapy; Z79.51 Long term (current) use of inhaled steroids; Z87.74 Personal history of (corrected) congenital malformations of heart and circulatory system; Z98.41 Cataract extraction status, right eye; Z98.42 Cataract extraction status, left eye
CPT/HCPCS: 36415; 73502; 80048; 80053; 82962; 83036; 85027; 87070; 93005; 94640; 97110; 97116; 97163; 97167; 97530; 97535; C1713; C1776